=== PATIENT | female | born 1935 | race Asian ===

== ENCOUNTER 2020-06-01 14:18 | Inpatient (IN) | payer OTHER ==
[2020-06-01] VITALS (7 sets, daily range): BP systolic 60–139; BP diastolic 31–87
[~2020-06-01] VITALS: Ht 157.5 cm; Wt 52.0 kg
--- NOTE | 2020-06-01 14:27 | Emergency Room Report ---
History of Present Illness General Chief Complaint: Altered Mental Status Source: Medical Record, EMS Present Illness HPI Patient was sent in from [facility]. Apparently she was unresponsive for 20 minutes before paramedics were called. They found her hypotensive and hypoxic. 150 cc of normal saline were started in the field. The patient is DNR with comfort measures only. Patient has history of dementia hypertension and prior pneumonia,. Patient has a history of dysphagia. Allergies: Coded Allergies: No Known Allergies (Unverified , 06/01/20) COVID-19 Screening Contact w/high risk pt: No Experienced COVID-19 symptoms?: No COVID-19 Testing performed NURSE MIDWIFE/CLINICAL INSTRUCTOR: No Patient History Limited by: medical condition Past Medical History: see triage record, old chart reviewed Social History Narrative TEREZA MaoR Last Menstrual Period: na Reviewed Nursing Documentation: PMH: Agreed; PSxH: Agreed Nursing Documentation-PMH Past Medical History: No History, Except For Hx Hypertension: Yes Review of Systems All Other Systems: limited Physical Exam Vital Signs Date Time Temp Pulse Resp B/P (MAP) Pulse Ox O2 Delivery O2 Flow Rate FiO2 06/01/20 14:14 97.3 80 25 60/31 (41) 90 Non-Rebreather General Appearance: mild distress, other - Eyes closed but responds to pain, Chronically Ill Head: normocephalic Eyes: bilateral eye other - Eyes closed ENT: dry mucus membranes Neck: supple Respiratory: respiratory distress - Mild, rhonchi Cardiovascular #1: regular rate, rhythm, no edema Cardiovascular #2: 2+ radial (L) Gastrointestinal: non tender, decreased bowel sounds Genitourinary: no CVA tenderness Musculoskeletal: back normal Neurologic: aphasia, other - Response to pain, moves all four extremities Psychiatric: depressed affect Skin: Decubitus/Ulcer - Heels, stage I right stage II left, warm/dry Procedures Critical Care Time Critical Care Time Total Critical Care Time: 60 min bedside evaluation and treatment excludes procedures (EKG). Reason for critical care: Severe sepsis, hypotension, elevated troponin, hypoxia, review of CODE STATUS Possible complications: hypotension, hypertension, NV, shock, arrhythmias, metabolic acidosis, end organ damage, respiratory failure. Interventions: Fluid resuscitation, antibiotics, repeat evaluations, review of CODE STATUS, treatment of positive troponin. Course: Patient presented with a history of being unresponsive for 20 minutes. Found to be hypotensive and hypoxemic. Fluid resuscitation begun for sepsis and antibiotics ordered. CODE STATUS reviewed. Call with elevated troponin. A spirin administered. Unable to administer Nitropaste or metoprolol as the patient is hypotensive. Blood pressure improving with fluids. Discussed with admitting physician. Consultations: nursing staff, EMS, admitting physician Performed by: Dr. Miramontes Tolerated well condition = critical Medical Decision Making Diagnostic Impression: Primary Impression: Severe sepsis Additional Impressions: Hypotension Qualified Codes: I95.89 - Other hypotension Hypoxia Elevated troponin Bilateral pneumonia Qualified Codes: J18.9 - Pneumonia, unspecified organism COVID-19 ruled out by laboratory testing Hypernatremia Renal failure Qualified Codes: N19 - Unspecified kidney failure ER Course Patient presents with hypoxia and hypotension. Differential includes Covid, sepsis, pneumonia, pulmonary embolus amongst others. Patient evaluated with EKG, chest x-ray and labs. Patient treated with sepsis resuscitation volume repletion and antibiotics initially. Patient is comfort measures only. Brachial IV started by Dr. Ramires. Patient is extreme extremely dry. EKG sinus rhythm with runs of PACs. No acute changes. Chest x-ray with dense left lower lobe infiltrate and small right lower lobe infiltrate also. Call for elevated lactic acid. Patient's mentation unchanged. Blood pressure still low. Repeat bolus ordered of 1 L and then 300 mils per hour. Prioritize beginning antibiotics. Sepsis reevaluation 1514 White count low. Elevated sodium. Renal failure. Called with elevated troponin. Aspirin ordered. Patient fluid responsive. Blood pressure improved. Patient without respiratory distress with improved oxygen saturation. Still keeps eyes closed. Laboratory Tests Test 06/01/20 14:26 06/01/20 17:10 06/01/20 21:30 06/01/20 23:30 White Blood Count 5.3 K/UL (4.8-10.8) Red Blood Count 5.36 M/UL (4.20-5.40) Hemoglobin 16.6 G/DL (12.0-16.0) H Hematocrit 49.5 % (37.0-47.0) H Mean Corpuscular Volume 92 FL (80-99) Mean Corpuscular Hemoglobin 31.0 PG (27.0-31.0) Mean Corpuscular Hemoglobin Concent 33.6 G/DL (32.0-36.0) Red Cell Distribution Width 11.9 % (11.6-14.8) Platelet Count 273 K/UL (150-450) Mean Platelet Volume 4.9 FL (6.5-10.1) L Neutrophils (%) (Auto) 68.4 % (45.0-75.0) Lymphocytes (%) (Auto) 16.1 % (20.0-45.0) L Monocytes (%) (Auto) 12.8 % (1.0-10.0) H Eosinophils (%) (Auto) 0.0 % (0.0-3.0) Basophils (%) (Auto) 2.6 % (0.0-2.0) H Prothrombin Time 12.1 SEC (9.30-11.50) H Prothrombin Time INR 1.1 (0.9-1.1) Activated Partial Thromboplast Time 22 SEC (23-33) L Sodium Level 161 MMOL/L (136-145) *H Potassium Level 3.2 MMOL/L (3.5-5.1) L Chloride Level 121 MMOL/L (98-107) H Carbon Dioxide Level 25 MMOL/L (21-32) Anion Gap 14 mmol/L (5-15) Blood Urea Nitrogen 82 mg/dL (7-18) H Creatinine 1.9 MG/DL (0.55-1.30) H Estimated Glomerular Filtration Rate 25.2 mL/min (>60) Glucose Level 128 MG/DL (74-106) H Lactic Acid Level 5.10 mmol/L (0.4-2.0) H 6.70 mmol/L (0.4-2.0) H 8.10 mmol/L (0.66-2.22) H Calcium Level 9.9 MG/DL (8.5-10.1) Phosphorus Level 4.2 MG/DL (2.5-4.9) Magnesium Level 2.9 MG/DL (1.8-2.4) H Total Bilirubin 2.6 MG/DL (0.2-1.0) H Direct Bilirubin 0.9 MG/DL (0.0-0.3) H Aspartate Amino Transferase (AST) 43 U/L (15-37) H Alanine Aminotransferase (ALT) 67 U/L (12-78) Alkaline Phosphatase 62 U/L (46-116) Troponin I 0.100 ng/mL (0.000-0.056) Pro-B-Type Natriuretic Peptide 723 pg/mL (0-125) H Total Protein 6.2 G/DL (6.4-8.2) L Albumin 3.2 G/DL (3.4-5.0) L Globulin 3.0 g/dL Albumin/Globulin Ratio 1.1 (1.0-2.7) Lipase 250 U/L (73-393) Arterial Blood pH 7.407 (7.350-7.450) Arterial Blood Partial Pressure CO2 31.7 mmHg (35.0-45.0) L Arterial Blood Partial Pressure O2 67.4 mmHg (75.0-100.0) L Arterial Blood HCO3 19.5 mmol/L (22.0-26.0) L Arterial Blood Oxygen Saturation 91.9 % (95-100) L Arterial Blood Base Excess -4.1 (-2-2) L Beau Test Positive Microbiology Date/Time Source Procedure Growth Status 06/01/20 14:05 Nasopharynx SARS-CoV-2 RdRp Gene Assay - Final Complete EKG Diagnostic Results Rate: normal Rhythm: NSR, other - Runs of PACs ST Segments: no acute changes Rhythm Strip Diag. Results EP Interpretation: yes Rhythm: NSR, no PVC's, other - He sees Chest X-Ray Diagnostic Results Chest X-Ray Diagnostic Results : Chest X-Ray Ordered: Yes # of Views/Limited/Complete: 1 View Indication: Shortness of Breath EP Interpretation: Yes Interpretation: no effusion, no pneumothorax, other - Dense left lower lobe infiltrate and slight right lower lobe infiltrate. Impression: Other Electronically Signed by: Electronically signed by Keenan Miramontes MD BP 107/56, not tachycardic, pulse ox 95% on 100% NRM Status: improved Disposition: ADMITTED INPATIENT Condition: Critical Keenan Miramontes MD Jun 01, 2020 14:27
[2020-06-01] MEDS ORDERED: Vancomycin 1 GM in NS 275 ML IV ONE (14:30)
[2020-06-01] MEDS ORDERED: Cefepime HCl 2 GM in NS 110 ML IV ONE (14:30)
--- NOTE | 2020-06-01 14:30 | NUR ---
ED Nurse Note: pt NEELA ORTIZ RA [address] [facility] for AMS x 20 minutes. per EMS, pt was satting at 60% on RA so they placed her on 15L O2 NRB, satting at 90%, pt is hypotensive with systolic BP being in the 60's. pt presents to ED agonally breathing, non-responsive to name, pain or touch. she has an IV line to L wrist with 500 mL NS running that was placed CATERER'S AIDE to [facility]. pt is noted to be satting in the low 90's and hypotensive. ERMD placed 18' IV using US to pt's R upper arm, IV fluid began emergently. will cont to monitor pt
[2020-06-01 14:45] LABS: BASOPHILS % (AUTO) 2.6 % (0.0-2.0); HEMATOCRIT 49.5 % (37.0-47.0); HEMOGLOBIN 16.6 G/DL (12.0-16.0); LYMPHOCYTES % (AUTO) 16.1 % (20.0-45.0); MEAN CORPUSCULAR VOLUME 92 FL (80-99); MONOCYTES % (AUTO) 12.8 % (1.0-10.0); NEUTROPHILS % (AUTO) 68.4 % (45.0-75.0); PLATELET COUNT 273 K/UL (150-450); RED BLOOD COUNT 5.36 M/UL (4.20-5.40); RED CELL DISTRIBUTION WIDTH 11.9 % (11.6-14.8); WHITE BLOOD COUNT 5.3 K/UL (4.8-10.8)
[2020-06-01 14:55] LABS: INR 1.1 (0.9-1.1)
--- NOTE | 2020-06-01 14:55 | NUR ---
ED Nurse Note: pt seems to wince when RN swabs pt for COVID but non-responsive to verbal stimuli or name. pt is noted to be satting at 99% on 15L O2 via NRB mask. pt's BP is now 73/49 with pulse of [address] Miramontes gave ok to start cefipime IV
[2020-06-01] MEDS ORDERED: BISACODYL5 MG RECTAL (15:11)
[2020-06-01] MEDS ORDERED: ACETAMINOPHEN120 MG PO (15:11)
[2020-06-01] MEDS ORDERED: LOVASTATIN10 MG ORAL (15:11)
[2020-06-01] MEDS ORDERED: FLOMAX0.4 MG ORAL (15:11)
[2020-06-01] MEDS ORDERED: OMEPRAZOLE20 M2 ORAL (15:11)
[2020-06-01] MEDS ORDERED: COZAAR50 MG ORAL (15:11)
[2020-06-01] MEDS ORDERED: MELATONIN3 MG ORAL (15:11)
[2020-06-01] MEDS ORDERED: HYDROCHLOROTH12.5 MG ORAL (15:11)
[2020-06-01] MEDS ORDERED: MILK OF MA400 MG/51 ORAL (15:11)
[2020-06-01] MEDS ORDERED: MULTIVITAMINS1 EAC2 ORAL (15:11)
[2020-06-01] MEDS ORDERED: MEGESTROL ACETAT5 GM MC (15:11)
[2020-06-01] MEDS ORDERED: NORVASC5 MG ORAL (15:11)
[2020-06-01] MEDS ORDERED: CRANBERRY450 M5 PO (15:11)
[2020-06-01] MEDS ORDERED: URECHOLINE25 MG ORAL (15:11)
[2020-06-01 15:16] LABS: ALBUMIN 3.2 G/DL (3.4-5.0); ALBUMIN/GLOBULIN RATIO 1.1 (1.0-2.7); BILIRUBIN,TOTAL 2.6 MG/DL (0.2-1.0); CALCIUM 9.9 MG/DL (8.5-10.1); CREATININE 1.9 MG/DL (0.55-1.30); PHOSPHORUS 4.2 MG/DL (2.5-4.9); POTASSIUM 3.2 MMOL/L (3.5-5.1)
[2020-06-01 15:39] LABS: BILIRUBIN,DIRECT 0.9 MG/DL (0.0-0.3)
--- NOTE | 2020-06-01 15:42 | NUR ---
ED Nurse Note: pt's rectal temp was 98.7, she has redness to her sacral region. R upper arm IV site was infiltrated and removed. pt still has 2 patent IV sites on L arm in the AC and wrist. pt had one large BM that consisted mainly of foul smelling green/yellow diarrhea.
--- NOTE | 2020-06-01 16:35 | Diagnostic Imaging Report ---
Indication: Shortness of breath Technique: One view of the chest Comparison: none Findings: Fairly dense consolidation is seen at the left lung base. There is also some infiltrate at the right infrahilar region. Chronic appearing interstitial prominence and bronchial wall thickening is seen elsewhere. The heart size is normal. There is some blunting of left costophrenic sulcus, small amount of pleural fluid likely. The aorta is tortuous and calcified. Impression: Bilateral left greater than right infiltrates, likely pneumonia Other findings as noted
[2020-06-01] MEDS ORDERED: Acetaminophen 650mg/20.3ml NG PRN (17:00)
--- NOTE | 2020-06-01 17:33 | NUR ---
ED Nurse Note: report given to MANDEEP Mcmullen.
--- NOTE | 2020-06-01 18:05 | NUR ---
NURSE NOTES:Patient received from MANDEEP Arrieta from the ER. Patient arrived via gurney. Placed patient on ekg monitor. Vitals are stable, 02 saturation is at 91 on 15 liters non-rebreather, Dr willis ordered BIPAP for patient. Cardiac rhythm is sinus rhythm. notified RT that patient arrived to the floor. Patient is non-verbal and responding to painful stimuli only. Patients Right arm is swollen, ER stated that an IV was running but the IV was infiltrated, which is the cause for the swelling as it was not there before, IV was removed and restarted in the left arm. Bed is in the low and locked position, with call light at bedside. Patient is DNR/DNI. ordered NG tube placement but patient is on BIPAP. will continue plan of care and monitor patient closely.
--- NOTE | 2020-06-01 18:15 | History and Physical Report ---
DATE OF ADMISSION: 06/01/2020 REASON FOR ADMISSION: Sepsis with shock. HISTORY OF PRESENT ILLNESS: This [place] female who [facility] a [facility] was found unresponsive for approximately 20 minutes at which time paramedics arrived. She was noted to be hypoxic and hypotensive. She was started on IV fluids and bagged. She was brought into the emergency room where her initial blood pressure was 60/31, heart rate 80, and respiratory rate 25. She was afebrile and immediately placed on a non-rebreather mask with saturations of approximately 89 to 90%. The patient had a diagnostic workup including an elevated lactic acid level. She was given fluid challenges and villarreal cultured with empiric antimicrobials initiated. PAST MEDICAL HISTORY: Includes osteoarthritis, dementia, hypertension, dysphagia. ALLERGIES: None. MEDICATIONS: Reviewed and reconciled. FAMILY HISTORY: Not known. SOCIAL HISTORY: Negative for smoking or alcohol use. REVIEW OF SYSTEMS: Not obtainable. Twenty minutes time spent reviewing skilled nursing chart and discussing status with skilled nursing staff. PHYSICAL EXAMINATION: VITAL SIGNS: As noted above. HEENT: Temporal wasting. Dry mucous membranes. LUNGS: Bilateral rhonchi. CARDIAC: Regular rhythm and rate. Normal S1, S2. No murmur appreciated, but respiratory sounds obscure exam. ABDOMEN: Soft, nontender. EXTREMITIES: No edema with some decreased capillary refill. Moves all extremities. LABORATORY AND DIAGNOSTIC DATA: Chest x-ray reveals bilateral lower lobe infiltrates left greater than right. EKG with sinus rhythm, atrial arrhythmia, and nonspecific ST change. Sodium 161, potassium 3.2, chloride 121, bicarb 25, BUN 82, creatinine 1.9, glucose 128. Lactic acid 5.1. Troponin 0.1. Albumin is 3.2. Pro natriuretic peptide 723. White count 5.3 with hemoglobin 16.6. Urinalysis is pending. IMPRESSION: 1. Sepsis with shock. 2. Healthcare-associated pneumonia. 3. Severe dehydration. 4. Hypovolemia. 5. Hypernatremia. 6. Hyperchloremia. 7. Hypokalemia. 8. Cerebrovascular disease with dementia. 9. Dysphagia. 10. Lactic acidosis. 11. Condition critical. 12. Prognosis guarded. 13. Acute respiratory insufficiency. Advance directives were reviewed. Patient has signed advance directives for DNR/DNI. This will be implemented. PLAN: 1. Cardiac monitoring. 2. Volume resuscitation followed by hypotonic hydration. 3. NG tube for nutrition and fluids. 4. Broad-spectrum antimicrobials pending final cultures. 5. Respiratory hygiene. 6. DVT and stress ulcer prophylaxis. 7. Serial lactic acid and troponin levels. 8. BiPAP support. 9. No pressors at this time. Glynn Wright M.D. DR: ZACKERY JOB#: [id number] CC:
[2020-06-01] MEDS: D5 1/2NS w/KCl 20mEq 1,000 ML IV SCH (19:00)
--- NOTE | 2020-06-01 19:45 | NUR ---
NURSE NOTES: Received patient from MANDEEP Mcmullen under the care of Dr. Wright for the admitting dx. of altered mental status. Placed patient on school lunch monitor and is bouncing between ST and SR. Vitals are stable. Patient is non-verbal and responding to painful stimuli only. Patients R arm is swollen, previous nurse stated that an IV was infiltrated from ER, which is the cause for the swelling. Bed is in the low and locked position, with call light at bedside. Patient is DNR/DNI. MD ordered NG tube placement but patient is on BIPAP. Will continue current plan of care.
[2020-06-01] MEDS: Albuterol/Ipratropium 3ml neb HHN SCH (19:48)
--- NOTE | 2020-06-01 19:48 | NUR ---
NURSE HAND-OFF REPORT: Important Events on Shift:BP dropped to 60s/40s patient is also tachycardic Patient Status: Unstable Diet: Diet ordered placed for Osmolyte but patient is on BIPAP. Pending Orders: NG tube placement Pending Results/Labs: Pending MD notification: Latest Vital Signs: Temperature 97.3 , Pulse 80 , B/P 62 /41 , Respiratory Rate 19 , O2 SAT 95 , Non-Rebreather, O2 Flow Rate 15.0 . Vital Sign Comment: BP dropping, IV fluids running at 125ML/Hour EKG Rhythm: Sinus rhythm Rhythm change?: N Notified?: N Response: Latest Rm Fall Score: 50 Fall Risk: High Risk Safety Measures: Call light , Bed Alarm , Side Rails , Bed position . Fall Precautions: Report given to .Devon KAUFMAN. Endorsed plan of care and to follow up with Dr Wright regarding NG placement for patient.
--- NOTE | 2020-06-01 20:00 | NUR ---
NURSE NOTES: Noted patient hypotensive status. MD called and left msg. Awaiting call back.
[2020-06-01] MEDS: Heparin 5000 units/ml inj SUBQ SCH (20:54)
--- NOTE | 2020-06-01 21:00 | NUR ---
NURSE NOTES: Patient asleep. Tolerating BiPAP settings well with O2 sat noted >93%. Noted with SR on the theatre manager, which changes occasionally to ST and back down to ST. Patient is otherwise asymptomatic. Blood pressure noted with SBP's on the 80s and DBP on the 50s. patient continues to be on IV fluids. Will continue to monitor.
--- NOTE | 2020-06-01 23:30 | NUR ---
NURSE NOTES: MD called regarding increased lactic acid and intermittent tachycardia of patient. No answer, left msg. Will continue with current plan of care.
[2020-06-02] VITALS (11 sets, daily range): BP systolic 57–144; BP diastolic 39–89
--- NOTE | 2020-06-02 | NUR ---
NURSE NOTES: Noted with elevated HR but otherwise benign. Bolus NS @300cc/hr given and noted to have stabilized BP to WNL. Noted FLACC score of 0/10, with no distress or discomfort noted. Will continue to monitor.
[2020-06-02] MEDS: Albuterol/Ipratropium 3ml neb HHN SCH ×5 (00:59→19:20)
[2020-06-02] MEDS: D5 1/2NS w/KCl 20mEq 1,000 ML IV SCH ×2 (02:45→10:25)
--- NOTE | 2020-06-02 03:00 | NUR ---
NURSE NOTES: Noted fluctuation between SR and ST via satellite project site monitor, but otherwise benign. Patient is asleep, with 0/10 FLACC score. No sign of discomfort or distress noted. Will continue to monitor.
--- NOTE | 2020-06-02 05:00 | NUR ---
NURSE NOTES: Patient still asleep. Tolerating BiPAP settings well with no signs of distress or discomfort at this time. FLACC score noted 0/10. Safety check performed in room. All precautions observed and maintained at all times. Will continue to monitor.
--- NOTE | 2020-06-02 07:10 | NUR ---
NURSE HAND-OFF REPORT: Important Events on Shift: Admitted to unit. Patient Status: Stable Diet: Order for NGT Pending Orders: Pending Results/Labs: Pending MD notification: Latest Vital Signs: Temperature 96.3 , Pulse 89 , B/P 144 /89 , Respiratory Rate 34 , O2 SAT 99 , Bi-pap, O2 Flow Rate 15.0 . Vital Sign Comment: EKG Rhythm: Sinus Rhythm Rhythm change?: N MD Notified?: N - MD Response: Latest Rm Fall Score: 55 Fall Risk: High Risk Safety Measures: Call light Within Reach, Bed Alarm Zone 1, Side Rails Side Rails x3, Bed position Low and Locked. Fall Precautions: Yellow Socks Yellow Gown Door Sign Report given to MANDEEP Patel.
--- NOTE | 2020-06-02 07:28 | NUR ---
NURSE NOTES: Received report from MANDEEP Bermudez. Patient is resting in bed, in stable condition. No s/sx of SOB, breathing is even and unlabored, on Bipap 12/4 FiO2 100%, SpO2 95%. Per night nurse, unable to insert ordered NGT due to patient desaturating to 70% SpO2 and unable to be weaned from BiPap. Per POLST patient is DNR/DNI, ordered code status is DNR/DNI. Patient sleeping, observed no presence of pain or discomfort at this time. Bed is in lowest position, brakes engaged, bed alarm is on. Bed is in lowest position, brakes engaged. Call light is kept within easy reach. Will continue to monitor patient.
--- NOTE | 2020-06-02 07:45 | NUR ---
NURSE NOTES: Per MANDEEP Bermudez report, patient goes in and out of atrial fibrillation and MD is aware. Patient currently noted sinus rhythm 83 bpm on registered nurse cardiac. Noted. Will continue to monitor patient.
--- NOTE | 2020-06-02 08:00 | NUR ---
NURSE NOTES: Morning vital signs noted with BP 57/37, HR 143 bpm, patient is on D5 0.45% NS with 20 mEq KCl at 125 ml/hr. Patient noted DNR/DNI with POLST. Charge nurse made aware. Called Dr. Wright at , delivered to voicemail, left voicemail regarding situation at this time. Awaiting call back. Will continue to monitor patient.
[2020-06-02 08:10] LABS: HEMATOCRIT 39.3 % (37.0-47.0); HEMOGLOBIN 13.5 G/DL (12.0-16.0); MEAN CORPUSCULAR VOLUME 92 FL (80-99); PLATELET COUNT 135 K/UL (150-450); RED BLOOD COUNT 4.27 M/UL (4.20-5.40); RED CELL DISTRIBUTION WIDTH 12.1 % (11.6-14.8); WHITE BLOOD COUNT 8.1 K/UL (4.8-10.8)
[2020-06-02 08:22] LABS: CREATININE 1.5 MG/DL (0.55-1.30); POTASSIUM 3.1 MMOL/L (3.5-5.1)
--- NOTE | 2020-06-02 08:29 | NUR ---
RD ASSESSMENT & RECOMMENDATIONS SEE CARE ACTIVITY FOR COMPLETE ASSESSMENT DAILY ESTIMATED NEEDS: Needs based on Pulmonary, underweight/ 48kg 30-35 kcals/kg 6544-9336 total kcals 1-1.5 g protein/kg 48-75 g total protein 25-30 mL/kg 1687-3611 total fluid mLs NUTRITION DIAGNOSIS: Swallowing difficulty R/T dysphagia, respiratory status as evidenced by w/ an order for NGT insertion + TF, on BIPAP at this time. CURRENT TF:Osmolite 1.2 @ 20ml/hr x 24 hrs ordered, pt on BIPAP PO DIET RECOMMENDATIONS: CHANNELER INSOLE eval prior to oral diet for safety of PO intake ENTERAL NUTRITION RECOMMENDATIONS: Osmolite 1.2 @ 50ml/hr x 24 hrs to provide 1200ml, 1440kcal, 67g prot, 984ml free water * Once off BIPAP and hemodynamically stable - increase goal rate to 50ml/hr x 24 hrs to meet 100% est kcal/prot needs. - HOB over 30 degrees - water flush without IVF : 100ml q 8hrs ADDITIONAL RECOMMENDATIONS: * Per SNF: HT= 63", 106lbs (05/17/20) * Monitor hemodynamic stability and BIPAP usage, ability to feed -> hypotensive, on BIPAP * Monitor lytes, replete as needed * F/up w/ WC eval for BL heels
[2020-06-02 08:34] LABS: ALBUMIN/GLOBULIN RATIO 0.7 (1.0-2.7); BILIRUBIN,TOTAL 1.4 MG/DL (0.2-1.0)
[2020-06-02 08:36] LABS: BILIRUBIN,DIRECT 0.5 MG/DL (0.0-0.3)
[2020-06-02] MEDS: Cefepime HCl 1 GM in D5W 55 ML IVPB SCH (08:48)
[2020-06-02] MEDS: Heparin 5000 units/ml inj SUBQ SCH ×2 (08:54→21:29)
[2020-06-02] MEDS: Aspirin Baby 81mg NG SCH (08:56)
--- NOTE | 2020-06-02 09:00 | NUR ---
NURSE NOTES: Second call to Dr. Wright to [facility] telephone umber provided, sent to [employer]. Left message, patient's blood pressure noted at 62/54 with HR 132 bpm. On bipap 12/ FiO2 90%, SpO2 99%. Patient is DNR/DNI per POLST and code status. Will continue to monitor patient.
[2020-06-02] MEDS ORDERED: Vancomycin 1gm/D5W 275ml IVPB ONE ×2 (10:00)
--- NOTE | 2020-06-02 10:00 | NUR ---
NURSE NOTES: Nurse yeast supervisor at nurse station, made aware that Dr. Wright has been paged twice regarding patient's low blood pressure, Patient DNR/DNI. Nurse yeast supervisor acknowledged. Will continue to monitor patient.
--- NOTE | 2020-06-02 10:30 | NUR ---
NURSE NOTES: Dr. Wright called back nurse station and made aware of low blood pressure of 57/37 with HR 150 bpm this morning, current BP 81/52 Hr 119 bpm. Also made aware of new lactic acid level of 5.10 and troponin level of 0.221. Dr. Wright acknowledged and informed this nurse they will increase D5 0.45% NS with 20 mEq KCl IV fluid ordered to rate of 150 ml/hr. Noted. Will continue to monitor patient.
--- NOTE | 2020-06-02 11:10 | NUR ---
NURSE NOTES: Dr. Guerra seen and examined patient at bedside. Noted with new IV fluids order for D5W at 100 ml/hr per Dr. Guerra, informed Dr. Guerra that this nurse was just informed by Dr. Wright 15 minutes ago that they will increase IV fluid rate to 150 ml/hr due to patient hypotension, BP 57/37 HR 150 bpm, Dr. Guerra acknowledged and gave no new orders regarding IV fluid rate. Noted. Dr. Guerra ordered urinary sanchez catheter insertion due to sepsis, Albumin 5% 500 ml IV x 1. Order entered and noted. Also informed Dr. Guerra that patient noted with low urine output and 100 ml of dark rhonda urine. Dr. Guerra acknowledged. Will continue to monitor patient.
--- NOTE | 2020-06-02 11:21 | Consultation ---
Consult Note Consult Note I am asked to evaluate the patient at the request of Dr. Wright for renal failure and abnormal electrolyte and fluid management Patient seen in [facility]. Discussed with MANDEEP Patel. Patient is on BiPAP. Tachypneic and toxic appearance. Patients CODE STATUS is DNR/DNI. Emergency room note: Patient was sent in from [facility]. Apparently she was unresponsive for 20 minutes before paramedics were called. They found her hypotensive and hypoxic. 150 cc of normal saline were started in the field. The patient is DNR with comfort measures only. Patient has history of dementia hypertension and prior pneumonia,. Patient has a history of dysphagia. Allergies: No Known Allergies (Unverified , 06/01/20) COVID-19 Screening Contact w/high risk pt: No Experienced COVID-19 symptoms?: No COVID-19 Testing performed CASE AIDE: No Limited by: medical condition Past Medical History: see triage record, old chart reviewed Social [facility] [place] Reviewed Nursing Documentation: PMH: Agreed; PSxH: Agreed Past Medical History: No History, Except For Hx Hypertension: Yes PHYSICAL EXAMINATION: VITAL SIGNS: As noted above. HEENT: Temporal wasting. Dry mucous membranes. LUNGS: Bilateral rhonchi. CARDIAC: Regular rhythm and rate. Normal S1, S2. No murmur appreciated, but respiratory sounds obscure exam. ABDOMEN: Soft, nontender. EXTREMITIES: decreased capillary refill. Moves all extremities. LABORATORY AND DIAGNOSTIC DATA: Chest x-ray reveals bilateral lower lobe infiltrates left greater than right. EKG with sinus rhythm, atrial arrhythmia, and nonspecific ST change. Sodium 161, potassium 3.2, chloride 121, bicarb 25, BUN 82, creatinine 1.9, glucose 128. Lactic acid 5.1. Troponin 0.1. Albumin is 3.2. Pro natriuretic peptide 723. White count 5.3 with hemoglobin 16.6. Urinalysis is pending. Assessment/Plan Renal failure Severe dehydration Sepsis with shock Pneumonia Electrolyte imbalances History of CVA with dementia Respiratory failure Patient is on BiPAP To have Jaime catheter D5W IV fluid Albumin 5% 500 cc IV bolus Monitor renal parameters electrolytes Antibiotics pulmonary support Patient DNR/DNI Asher Guerra MD Jun 02, 2020 11:21
--- NOTE | 2020-06-02 16:00 | NUR ---
NURSE NOTES: Patient with new ABG results as follows: pH 7.390, pCO2 23.5, pO2 88.7, HCO3 14.0, O2 saturation 96.5 with Bipap setting of 12/4 FiO2 70%. Called and left message with Dr. Wright regarding assessments. Will continue to monitor patient.
--- NOTE | 2020-06-02 16:20 | NUR ---
NURSE NOTES: TANISHA Campos of Dr. Roth seen and examined patient at bedside. This nurse informed WELDING MACHINE OPERATOR SUBMERGED ARC of ABG results of: pH 7.390, pCO2 23.5, pO2 88.7, HCO3 14.0, O2 saturation 96.5 with Bipap setting of 12/4 FiO2 70%. Patient is DNR/DNI per POLST. TANISHA Campos acknowledged and informed this nurse that they will consult Dr. Roth before making any new orders at this time. Noted. Will continue to monitor patient.
--- NOTE | 2020-06-02 17:00 | NUR ---
NURSE NOTES: Called and left message for Dr. Wright regarding clarification for nasogastric tube insertion order. Per patient's POLST no artificial means of nutrition or tube feeding. Awaiting call back from Dr. Wright. Will continue to monitor patient.
[2020-06-02] MEDS ORDERED: BISACODYL10 M1 RC (18:28)
[2020-06-02] MEDS ORDERED: INFUVITE ADULT10 ML IV (18:28)
[2020-06-02] MEDS ORDERED: MULTIVITAMINS1 EAC8 ORAL (18:28)
[2020-06-02] MEDS ORDERED: MEGESTROL400 MG/11 PO (18:28)
--- NOTE | 2020-06-02 19:16 | NUR ---
NURSE HAND-OFF REPORT: Important Events on Shift: Patient Status: Stable Diet: Awaiting clarificaton of NGT inseriton from Dr. Wright. MANDEEP Bermudez made aware. Pending Orders: Awaiting clarificaton of NGT inseriton from Dr. Wright. MANDEEP Bermudez made aware. Pending Results/Labs:None Pending MD notification:None Latest Vital Signs: Temperature 98.2 , Pulse 122 , B/P 94 /62 , Respiratory Rate 29 , O2 SAT 100 , Bi-pap, O2 Flow Rate 15.0 . Vital Sign Comment: Stable. EKG Rhythm: Atrial Fibrillation Rhythm change?: Y Notified?: N - MD Response: Latest Rm Fall Score: 55 Fall Risk: High Risk Safety Measures: Call light Within Reach, Bed Alarm Zone 1, Side Rails Side Rails x3, Bed position Low and Locked. Fall Precautions: Yellow Socks Yellow Gown Door Sign Report given to MANDEEP Bermudez.
--- NOTE | 2020-06-02 19:20 | NUR ---
NURSE NOTES: Received patient from MANDEEP Patel under the care of Dr. Wright for the admitting dx. of altered mental status. Placed patient on cardiac cath technician and is bouncing between ST and SR with episodes of A. fib. Vitals are stable. Patient is non-verbal and responding to painful stimuli only. Patients R arm is still swollen, IV was infiltrated from ER, which is the cause for the swelling. Bed is in the low and locked position, with call light at bedside. Patient is DNR/DNI. Will continue current plan of care.
--- NOTE | 2020-06-02 20:00 | NUR ---
NURSE NOTES: Seen and examined by JORGE Burnette at this time. Continue with current plan of care.
--- NOTE | 2020-06-02 20:00 | Cardiology Report ---
APPROVED REPORT EKG Measurement Heart [id number] HI [id number] <Conclusion> Sinus rhythm with paroxysmal atrial fibrillation Marked ST abnormality, possible anterior subendocardial injury Abnormal ECG
--- NOTE | 2020-06-02 20:36 | NUR ---
NURSE NOTES: Received new order from Dr. Roth regarding Covid PCR test for the patient. Noted and carried out.
--- NOTE | 2020-06-02 22:00 | NUR ---
NURSE NOTES: FLACC score of 0/10. No sign of distress or discomfort at this time. Tolerating BiPAP settings well, with saturations >96%. IV sites patent and infusing well, no redness or swelling noted on site. Safety check performed, observed and maintained at all times.
--- NOTE | 2020-06-02 23:02 | Cardiology Progress Note ---
Subjective DATE OF SERVICE: Jun 02, 2020 Remains tachypneic and hypoxic, on bipap. Hypotonic IVF being admin for severe free water deficit. Monitor: Paroxysmal atrial fibrillation with RVR Labs reviewed Advanced directives and Polst reaffirmed with responsible parties - DNR/DNI and no termite treater helper artificial nutrition Objective Last 24 Hour Vital Signs Date Time Temp Pulse Resp B/P (MAP) Pulse Ox O2 Delivery O2 Flow Rate FiO2 06/02/20 21:00 Bi-pap 06/02/20 20:00 70 06/02/20 20:00 97.3 124 34 110/66 (81) 100 06/02/20 20:00 119 06/02/20 20:00 Bi-pap 06/02/20 19:32 110 30 100 Bi-Pap 70 112 31 100 70 06/02/20 18:00 122 94/62 (73) 06/02/20 16:00 Bi-pap 06/02/20 16:00 70 06/02/20 16:00 98.2 109 29 85/54 (64) 100 06/02/20 16:00 118 06/02/20 15:03 99 32 99 70 06/02/20 14:36 144 87/56 (66) 06/02/20 12:09 94 34 100 80 06/02/20 12:00 Bi-pap 06/02/20 12:00 93 06/02/20 12:00 90 06/02/20 12:00 80 06/02/20 11:57 99.0 120 29 71/42 (52) 100 06/02/20 10:12 119 81/55 (64) 06/02/20 09:00 98.5 133 29 57/39 (45) 100 06/02/20 09:00 Bi-pap 06/02/20 08:25 98.2 150 30 62/42 (49) 100 06/02/20 08:00 90 06/02/20 08:00 98.1 95 30 61/39 (46) 97 06/02/20 08:00 Bi-pap 06/02/20 08:00 93 06/02/20 08:00 90 06/02/20 07:10 96 36 99 90 06/02/20 04:00 100 06/02/20 04:00 88 06/02/20 04:00 96.3 89 34 144/89 (107) 99 06/02/20 00:59 76 29 100 Bi-Pap 100 06/02/20 00:00 100 06/02/20 00:00 97.0 68 26 80/50 (60) 99 06/02/20 00:00 70 06/01/20 23:47 78 28 91 100 ROS: unchanged from my eval of 06/01/20 HEENT: normal ENT inspection RHYTHM: Afib LUNGS: bilateral rhonchi, trach site clean ABDOMEN: normal bowel sounds, non tender, soft, distended EXTREMITIES: trace edema Laboratory Tests Test 06/01/20 23:30 06/02/20 07:45 06/02/20 10:50 06/02/20 15:25 Lactic Acid Level 8.10 mmol/L (0.66-2.22) H 5.40 mmol/L (0.4-2.0) H 5.40 mmol/L (0.66-2.22) H White Blood Count 8.1 K/UL (4.8-10.8) # Red Blood Count 4.27 M/UL (4.20-5.40) Hemoglobin 13.5 G/DL (12.0-16.0) Hematocrit 39.3 % (37.0-47.0) Mean Corpuscular Volume 92 FL (80-99) Mean Corpuscular Hemoglobin 31.6 PG (27.0-31.0) H Mean Corpuscular Hemoglobin Concent 34.3 G/DL (32.0-36.0) Red Cell Distribution Width 12.1 % (11.6-14.8) Platelet Count 135 K/UL (150-450) #L Mean Platelet Volume 6.0 FL (6.5-10.1) L Neutrophils (%) (Auto) % (45.0-75.0) Lymphocytes (%) (Auto) % (20.0-45.0) Monocytes (%) (Auto) % (1.0-10.0) Eosinophils (%) (Auto) % (0.0-3.0) Basophils (%) (Auto) % (0.0-2.0) Differential Total Cells Counted 100 Neutrophils % (Manual) 63 % (45-75) Lymphocytes % (Manual) 7 % (20-45) L Monocytes % (Manual) 7 % (1-10) Eosinophils % (Manual) 0 % (0-3) Basophils % (Manual) 0 % (0-2) Band Neutrophils 23 % (0-8) H Platelet Estimate Decreased L Platelet Morphology Normal Red Blood Cell Morphology Normal Sodium Level 159 MMOL/L (136-145) H Potassium Level 3.1 MMOL/L (3.5-5.1) L Chloride Level 126 MMOL/L (98-107) H Carbon Dioxide Level 19 MMOL/L (21-32) L Anion Gap 14 mmol/L (5-15) Blood Urea Nitrogen 83 mg/dL (7-18) H Creatinine 1.5 MG/DL (0.55-1.30) H Estimat Glomerular Filtration Rate 33.1 mL/min (>60) Glucose Level 122 MG/DL (74-106) H Calcium Level 8.0 MG/DL (8.5-10.1) L Magnesium Level 2.0 MG/DL (1.8-2.4) Total Bilirubin 1.4 MG/DL (0.2-1.0) H Direct Bilirubin 0.5 MG/DL (0.0-0.3) H Aspartate Amino Transf (AST/SGOT) 40 U/L (15-37) H Alanine Aminotransferase (ALT/SGPT) 45 U/L (12-78) Alkaline Phosphatase 38 U/L (46-116) L Troponin I 0.221 ng/mL (0.000-0.056) Total Protein 4.9 G/DL (6.4-8.2) L Albumin 2.0 G/DL (3.4-5.0) L Globulin 2.9 g/dL Albumin/Globulin Ratio 0.7 (1.0-2.7) L Thyroid Stimulating Hormone (TSH) 0.688 uiU/mL (0.358-3.740) Random Vancomycin Level 8.2 ug/mL Arterial Blood pH 7.390 (7.350-7.450) Arterial Blood Partial Pressure CO2 23.5 mmHg (35.0-45.0) *L Arterial Blood Partial Pressure O2 88.7 mmHg (75.0-100.0) Arterial Blood HCO3 14.0 mmol/L (22.0-26.0) *L Arterial Blood Oxygen Saturation 96.5 % (95-100) Arterial Blood Base Excess -9.1 (-2-2) *L Beau Test Positive Microbiology Date/Time Source Procedure Growth Status 06/01/20 17:23 Rectum Received 06/01/20 14:05 Nasopharynx SARS-CoV-2 RdRp Gene Assay - Final Complete Assessment/Plan Assessment/Plan Sepsis Shock Respiratory failure HC associated pneumonia Severe dehydration/hypernatremia/hyperchloremia Lactic acidosis Paroxysmal atrial fibrillation Acute myocardial ischemia Chronic diastolic CHF Acute renal failure erebrovascular disease with dementia Admit to SDU DNR/DNI IV antimicrobials Respiratory therapy Bipap Hypotonic IVF Serial lactic acid and troponin levels Keenan Wright MD Jun 02, 2020 23:02
--- NOTE | 2020-06-02 23:23 | NUR ---
NURSE NOTES: Orders for NGT placement, KUB xray, rectal tube placement, and c. diff stool test noted and carried out.
--- NOTE | 2020-06-02 23:30 | Consultation ---
DATE OF CONSULTATION: 06/02/2020 PULMONARY CONSULTATION HISTORY OF PRESENT ILLNESS: This is an 84-year-old DNR patient who is admitted to the hospital after a period of unresponsiveness. She is a half-way resident. The patient was hypoxic and hypotensive. Blood pressure was 60/30 and she was tachypneic. She was placed on a nonrebreather mask with improvement. The patient was noted to have lactic acid elevation. She was given broad-spectrum antibiotics, and at this time she is on a BiPAP machine. She is poorly responsive. PAST HISTORY: Osteoarthritis, dementia, hypertension, dysphagia. HOME MEDICATIONS: Reviewed and reconciled in chart. SOCIAL HISTORY: No history of alcohol or tobacco usage. PHYSICAL EXAMINATION: GENERAL: An 84-year old female. She appears cachectic. HEENT: Unremarkable. LUNGS: Clear breath sounds bilaterally. ABDOMEN: Soft. VITAL SIGNS: There is a BiPAP in place with setting of 13/4 and 70% FiO2. Blood pressure is 110/60, heart rate is 120, O2 sat 100% on 70% FiO2. LABORATORY DATA: Lab testing shows normal CBC. Chemistry is notable for lactic acid of 8.1, now 5.4. Sodium 155, potassium 3.1, creatinine 1.5. Troponin 0.22. ABG, pH 7.7, pCO2 23, pO2 88; this is on BiPAP. Toxicology is negative. Coags are negative. X-ray chest shows bilateral infiltrates. COVID-19 rapid PCR is negative. IMPRESSION: 1. Bilateral pneumonia. 2. Respiratory failure. 3. BiPAP use. 4. Altered mental status. 5. Dementia. 6. Limited code. DISCUSSION: Continue BiPAP. We will attempt to decrease as the patient improves. Broad-spectrum antibiotics. NG tube for nutrition and fluid . We will follow. Suggest repeat COVID-19 testing. Mars Roth M.D. DR: JEANCARLOS JOB#: [id number] CC:
--- NOTE | 2020-06-02 23:41 | Diagnostic Imaging Report ---
EXAM: XR Abdomen, 2 Views CLINICAL HISTORY: NGT TECHNIQUE: Frontal view of the abdomen/pelvis with upright view of the abdomen. COMPARISON: No relevant prior studies available. FINDINGS: Lower thorax: There is opacity of the left middle lower lung consistent with pneumonia. There is left pleural effusion. Intraperitoneal space: No free air. Gastrointestinal tract: Unremarkable. No dilation. Organs: Clips in the right upper quadrant from prior cholecystectomy. Bones/joints: Lumbar spine hardware is present. Status post vertebroplasty changes. The bones are osteopenic. Tubes, lines and devices: Nasogastric tube tip lies below the diaphragm however may be near the gastroesophageal junction. Suggest readjusting the nasogastric tube position by pulling the tube back and reinserting. IMPRESSION: 1. Nasogastric tube tip may be within the region of the gastroesophageal junction therefore repositioning is recommended. 2. Left lung pneumonia and left pleural effusion. <MYCVCSECTION> Communications: 06/02/20 23:48 Call Nurse Transfered MANDEEP Sterling to radiologist
--- NOTE | 2020-06-02 23:52 | NUR ---
NURSE NOTES: Radiologist from [facility] called to recommend nurse to advance NGT by about 5-8cm.
[2020-06-03] VITALS: BP 110/58
[2020-06-03] MEDS: Albuterol/Ipratropium 3ml neb HHN SCH ×4 (01:00→19:44)
--- NOTE | 2020-06-03 01:00 | NUR ---
NURSE NOTES: Rectal tube in position well. Noted with discharge. FLACC score of 0/10. No sign of distress or discomfort at this time. Tolerating BiPAP settings well, with saturations >96%. IV sites patent and infusing well, no redness or swelling noted on site. Safety check performed, observed and maintained at all times.
--- NOTE | 2020-06-03 02:59 | Diagnostic Imaging Report ---
EXAM: XR Abdomen, 2 Views CLINICAL HISTORY: NGT TECHNIQUE: Frontal view of the abdomen/pelvis with upright view of the abdomen. COMPARISON: Abdominal radiograph dated 06/02/20. FINDINGS: Lower thorax: There is consolidation of the left middle lower lung consistent with pneumonia. There is a left pleural effusion which is unchanged. Intraperitoneal space: No free air. Gastrointestinal tract: Unremarkable. No dilation. Organs: Cholecystectomy clips in the right upper quadrant. Bones/joints: Lumbar spine hardware reidentified with vertebroplasty changes. Vasculature: Calcification of the aortic arch. Tubes, lines and devices: The nasogastric tube tip is now within the distal stomach. IMPRESSION: Nasogastric tube tip is now within the distal stomach.
[2020-06-03 04:00] VITALS: BP 113/65
[2020-06-03 05:22] LABS: MEAN CORPUSCULAR VOLUME 90 FL (80-99); PLATELET COUNT 113 K/UL (150-450); RED BLOOD COUNT 3.79 M/UL (4.20-5.40); RED CELL DISTRIBUTION WIDTH 11.9 % (11.6-14.8); WHITE BLOOD COUNT 16.3 K/UL (4.8-10.8)
[2020-06-03 06:05] LABS: ALANINE AMINOTRANSFERASE 40 U/L (12-78); ALBUMIN 2.6 G/DL (3.4-5.0); ALKALINE PHOSPHATASE 51 U/L (46-116); ANION GAP 17 mmol/L (5-15); ASPARTATE AMINO TRANSFERASE 64 U/L (15-37); BILIRUBIN,TOTAL 1.5 MG/DL (0.2-1.0); BLOOD UREA NITROGEN 59 mg/dL (7-18); CALCIUM 8.8 MG/DL (8.5-10.1); CARBON DIOXIDE 14 MMOL/L (21-32); CHLORIDE 120 MMOL/L (98-107); CHOLESTEROL 66 MG/DL (< 200); FERRITIN 623 NG/ML (8-388); HDL CHOLESTEROL 27 MG/DL (40-60); SODIUM 150 MMOL/L (136-145); TRIGLYCERIDES 55 MG/DL (30-150)
[2020-06-03 07:03] LABS: POTASSIUM 2.7 MMOL/L (3.5-5.1)
[2020-06-03 07:10] LABS: BILIRUBIN,DIRECT 0.5 MG/DL (0.0-0.3)
--- NOTE | 2020-06-03 07:20 | NUR ---
NURSE HAND-OFF REPORT: Important Events on Shift: NGT placement, Rectal tube placement Patient Status: Stable Diet: - Pending Orders: Pending Results/Labs:C. diff. Pending MD notification: Abnormal lab values Latest Vital Signs: Temperature 97.7 , Pulse 128 , B/P 113 /65 , Respiratory Rate 34 , O2 SAT 97 , Bi-pap, O2 Flow Rate 15.0 . Vital Sign Comment: EKG Rhythm: Atrial Fibrillation with RVR Rhythm change?: N MD Notified?: N - MD Response: Latest Rm Fall Score: 55 Fall Risk: High Risk Safety Measures: Call light Within Reach, Bed Alarm Zone 1, Side Rails Side Rails x3, Bed position Low and Locked. Fall Precautions: Yellow Socks Yellow Gown Door Sign Report given to MANDEEP Giang.
[2020-06-03 07:25] LABS: % IRON SATURATION 9 % (15-50); IRON 8 ug/dL (50-175); TOTAL IRON BINDING CAPACITY 88 ug/dL (250-450)
[2020-06-03 07:35] LABS: GAMMA GLUTAMYL TRANSPEPTIDASE 16 U/L (5-85); LACTATE DEHYDROGENASE 359 U/L (81-234); PHOSPHORUS 1.6 MG/DL (2.5-4.9)
--- NOTE | 2020-06-03 07:36 | NUR ---
NURSE NOTES: Received report from MANDEEP Osorio. Patient in bed resting, no active s/s cardiac, respiratory distress noticed at this time. Patient AOx0, NGT on left nares 16F, @ 74cm. Rectal tube draining well to gravity at this time, Jaime Cath draining well to gravity. IV on left upper arm 20G, asymptomatic, patent, intact. Patient generalized edema. Endorsed C. Diff stool collected, pending result. On Bipap 12/4 Fio2 70%, O2 sat 100% at this time. Bed in lowest position, side rails upx3, call light within reach, bed alarm on, Will continue to monitor.
[2020-06-03 08:00] VITALS: BP 115/61
[2020-06-03] MEDS: Vancomycin 1gm/D5W 275ml IVPB ONE ×4 (08:45→09:39)
[2020-06-03] MEDS: Heparin 5000 units/ml inj SUBQ SCH ×2 (08:45→20:24)
[2020-06-03] MEDS: Cefepime HCl 1 GM in D5W 55 ML IVPB SCH (08:54)
--- NOTE | 2020-06-03 09:36 | Pulmonology Progress Note ---
Subjective Interval Events: On BiPAP; DNR confirmed Constitutional: Reports: no symptoms HEENT: Repors: no symptoms Respiratory: Reports: no symptoms Cardiovascular: Reports: no symptoms Gastrointestinal/Abdominal: Reports: no symptoms Allergies: Coded Allergies: No Known Allergies (Unverified , 06/01/20) Objective Last 24 Hour Vital Signs Date Time Temp Pulse Resp B/P (MAP) Pulse Ox O2 Delivery O2 Flow Rate FiO2 06/03/20 08:00 70 06/03/20 08:00 Bi-pap 06/03/20 08:00 119 06/03/20 08:00 97.5 118 30 115/61 (79) 100 06/03/20 07:48 134 30 100 70 06/03/20 04:00 128 06/03/20 04:00 70 06/03/20 04:00 Bi-pap 06/03/20 04:00 97.7 110 34 113/65 (81) 97 06/03/20 03:02 115 39 97 70 06/03/20 01:43 137 35 97 70 06/03/20 00:00 Bi-pap 06/03/20 00:00 97.7 118 30 110/58 (75) 100 06/02/20 23:33 123 06/02/20 22:52 103 37 98 70 06/02/20 21:00 Bi-pap 06/02/20 20:00 70 06/02/20 20:00 97.3 124 34 110/66 (81) 100 06/02/20 20:00 119 06/02/20 20:00 Bi-pap 06/02/20 19:32 110 30 100 Bi-Pap 70 112 31 100 70 06/02/20 18:00 122 94/62 (73) 06/02/20 16:00 Bi-pap 06/02/20 16:00 70 06/02/20 16:00 98.2 109 29 85/54 (64) 100 06/02/20 16:00 118 06/02/20 15:03 99 32 99 70 06/02/20 14:36 144 87/56 (66) 06/02/20 12:09 94 34 100 80 06/02/20 12:00 Bi-pap 06/02/20 12:00 93 06/02/20 12:00 90 06/02/20 12:00 80 06/02/20 11:57 99.0 120 29 71/42 (52) 100 06/02/20 10:12 119 81/55 (64) Intake and Output 06/02/20 06/03/20 19:00 07:00 Intake Total 310 ml Output Total 400 ml 710 ml Balance -90 ml -710 ml IV Total 310 ml Output Urine Total 400 ml 650 ml Stool Total 60 ml # Bowel Movements 2 1 General Appearance: no acute distress HEENT: normocephalic Respiratory: chest wall non-tender, lungs clear Cardiovascular: normal peripheral pulses, normal rate Abdomen: normal bowel sounds Microbiology Date/Time Source Procedure Growth Status 06/01/20 17:23 Rectum VRE Culture - Final NO VANCOMYCIN RESISTANT ENTEROCOCCUS ... Complete 06/01/20 17:23 Nasal Nares Left MRSA Culture - Final NO METHICILLIN RESISTANT STAPH AUREUS... Complete 06/01/20 14:28 Blood Blood Culture - Preliminary NO GROWTH AFTER 24 HOURS Resulted 06/01/20 14:10 Blood Blood Culture - Preliminary NO GROWTH AFTER 24 HOURS Resulted 06/01/20 14:05 Nasopharynx SARS-CoV-2 RdRp Gene Assay - Final Complete Laboratory Tests 06/02/20 10:50: Lactic Acid Level 5.40H 06/02/20 15:25: Arterial Blood pH 7.390, Arterial Blood Partial Pressure CO2 23.5*L, Arterial Blood Partial Pressure O2 88.7, Arterial Blood HCO3 14.0*L, Arterial Blood Oxygen Saturation 96.5, Arterial Blood Base Excess -9.1*L, Beau Test Positive 06/03/20 04:53: Lactic Acid Level 5.50H, White Blood Count 16.3#H, Red Blood Count 3.79L, Hemoglobin 12.0, Hematocrit 34.0L, Mean Corpuscular Volume 90, Mean Corpuscular Hemoglobin 31.6H, Mean Corpuscular Hemoglobin Concent 35.3, Red Cell Distribution Width 11.9, Platelet Count 113L, Mean Platelet Volume 6.6, Neutrophils (%) (Auto) , Lymphocytes (%) (Auto) , Monocytes (%) (Auto) , Eosinophils (%) (Auto) , Basophils (%) (Auto) , Differential Total Cells Counted 100, Neutrophils % (Manual) 68, Lymphocytes % (Manual) 2L, Monocytes % (Manual) 3, Eosinophils % (Manual) 0, Basophils % (Manual) 0, Metamyelocytes % 1H, Band Neutrophils 26H, Platelet Estimate DecreasedL, Platelet Morphology Normal, Red Blood Cell Morphology Normal, Sodium Level 150H, Potassium Level 2.7*L, Chloride Level 120H, Carbon Dioxide Level 14L, Anion Gap 17H, Blood Urea Nitrogen 59H, Creatinine 1.0, Estimat Glomerular Filtration Rate 52.8, Glucose Level 125H, Hemoglobin A1c 5.5, Uric Acid 5.1, Calcium Level 8.8, Phosphorus Level 1.6L, M agnesium Level 2.0, Iron Level 8L, Total Iron Binding Capacity 88L, Percent Iron Saturation 9L, Unsaturated Iron Binding 80L, Ferritin 623H, Total Bilirubin 1.5H , Direct Bilirubin 0.5H, Gamma Glutamyl Transpeptidase 16, Aspartate Amino Transf (AST/SGOT) 64H, Alanine Aminotransferase (ALT/SGPT) 40, Alkaline Phosphatase 51, Lactate Dehydrogenase 359H, Troponin I 0.141H, C-Reactive Protein, Quantitative 31.3H, Pro-B-Type Natriuretic Peptide 3335H, Total Protein 5.3L, Albumin 2.6L, Globulin 2.7, Albumin/Globulin Ratio 1.0, Triglycerides Level 55, Cholesterol Level 66, LDL Cholesterol 22, HDL Cholesterol 27L, Cholesterol/HDL Ratio 2.4L, Vitamin B12 Level 1766H, Folate 10.7, Random Vancomycin Level 11.6 06/03/20 08:40: Lactic Acid Level [Pending] Current Medications Medications (Trade) Dose Ordered Sig/Oksana Route PRN Reason Start Time Stop Time Status Last Admin Dose Admin Acetaminophen (Tylenol) 650 mg Q4H PRN NG fever pain 06/01/20 17:00 07/01/20 16:59 Albuterol/ Ipratropium (Albuterol/ Ipratropium) 3 ml Q6HRT HHN 06/01/20 19:00 06/06/20 18:59 06/02/20 19:20 Aspirin (ASA) 81 mg DAILY NG 06/02/20 09:00 07/17/20 08:59 Cefepime HCl 1 gm/ Dextrose 55 ml @ 110 mls/hr Q24H IVPB 06/02/20 09:00 06/09/20 08:59 06/03/20 08:54 Dextrose 1,000 ml @ 100 mls/hr Q10H IV 06/02/20 11:00 07/02/20 10:59 06/03/20 08:44 Heparin Sodium (Porcine) (Heparin 5000 units/ml) 5,000 units EVERY 12 HOURS SUBQ 06/01/20 21:00 07/16/20 20:59 06/02/20 21:29 Vancomycin HCl ([facility] pharmacy to dose) 1 ea DAILY PRN MISC Per rx protocol 06/01/20 16:30 07/01/20 16:29 Vancomycin HCl 750 mg/Sodium Chloride 275 ml @ 183.333 mls/hr Q24H IVPB 06/04/20 12:00 06/09/20 11:59 Assessment/Plan Assessment/Plan IMPRESSION: 1. Bilateral pneumonia. 2. Respiratory failure. 3. BiPAP use. 4. Altered mental status. 5. Dementia. 6. Limited code. DISCUSSION: Continue BiPAP. Will check ABg and attempt to try ventimask Broad-spectrum antibiotics. NG tube for nutrition and fluids Await repeat COVID-19 testing. Mars Roth M.D. Mars Roth MD Jun 03, 2020 09:36
[2020-06-03] MEDS: Aspirin Baby 81mg NG SCH (09:38)
[2020-06-03] MEDS ORDERED: D5 1/2NS 1000ml IV ONE (09:38)
[2020-06-03] MEDS ORDERED: Tubing IV Secondary IV ONE (09:38)
--- NOTE | 2020-06-03 10:12 | NUR ---
NURSE NOTES: Titrating Fio2 100 % to 85% according to ABG result.
--- NOTE | 2020-06-03 11:16 | NUR ---
NURSE NOTES: Dr. Roth made aware of result of ABG per MD try Non-rebreather 1 hour then ABG. Order noted, entered, carried out, RT made aware.
[2020-06-03 12:00] VITALS: BP 130/78
--- NOTE | 2020-06-03 12:50 | NUR ---
NURSE NOTES: Dr. Emy Flores at the nursing station, made aware of elevated WBC and Lactic acid, no new order received at this time, Will continue to monitor.
--- NOTE | 2020-06-03 12:50 | NUR ---
NURSE NOTES: Per Dr. Guerra, administer KCl first then Potassium phosphate, Pharmacist, Luca made aware.
--- NOTE | 2020-06-03 13:20 | Nephrology Progress Note ---
Assessment/Plan Problem List: (1) Renal failure (2) Hypernatremia (3) Hypoxia (4) Hypotension (5) Severe sepsis (6) Elevated troponin (7) Bilateral pneumonia Assessment Renal failure Severe dehydration Sepsis with shock Pneumonia Electrolyte imbalances History of CVA with dementia Respiratory failure Plan Will cut down on IV fluid to 75 cc an hour Potassium and phosphorus IV supplement Continue nonrebreather mask/BiPAP as needed Albumin 5% 500 cc IV bolus as needed Monitor renal parameters electrolytes Antibiotics pulmonary support Discussed with RN Subjective ROS Limited/Unobtainable: Yes Objective Objective Last 24 Hour Vital Signs Date Time Temp Pulse Resp B/P (MAP) Pulse Ox O2 Delivery O2 Flow Rate FiO2 06/03/20 12:00 Non-Rebreather 15.0 06/03/20 12:00 97.9 115 29 130/78 (95) 100 06/03/20 12:00 122 06/03/20 11:20 15.0 06/03/20 11:01 120 32 100 85 06/03/20 10:00 85 06/03/20 08:00 100 06/03/20 08:00 Bi-pap 06/03/20 08:00 119 06/03/20 08:00 97.5 118 30 115/61 (79) 100 06/03/20 07:48 134 30 100 100 06/03/20 04:00 128 06/03/20 04:00 70 06/03/20 04:00 Bi-pap 06/03/20 04:00 97.7 110 34 113/65 (81) 97 06/03/20 03:02 115 39 97 70 06/03/20 01:43 137 35 97 70 06/03/20 00:00 Bi-pap 06/03/20 00:00 97.7 118 30 110/58 (75) 100 06/02/20 23:33 123 06/02/20 22:52 103 37 98 70 06/02/20 21:00 Bi-pap 06/02/20 20:00 70 06/02/20 20:00 97.3 124 34 110/66 (81) 100 06/02/20 20:00 119 06/02/20 20:00 Bi-pap 06/02/20 19:32 110 30 100 Bi-Pap 70 112 31 100 70 06/02/20 18:00 122 94/62 (73) 06/02/20 16:00 Bi-pap 06/02/20 16:00 70 06/02/20 16:00 98.2 109 29 85/54 (64) 100 06/02/20 16:00 118 06/02/20 15:03 99 32 99 70 06/02/20 14:36 144 87/56 (66) Intake and Output 06/02/20 06/03/20 19:00 07:00 Intake Total 310 ml Output Total 400 ml 710 ml Balance -90 ml -710 ml IV Total 310 ml Output Urine Total 400 ml 650 ml Stool Total 60 ml # Bowel Movements 2 1 Current Medications Medications (Trade) Dose Ordered Sig/Oksana Route PRN Reason Start Time Stop Time Status Last Admin Dose Admin Acetaminophen (Tylenol) 650 mg Q4H PRN NG fever pain 06/01/20 17:00 07/01/20 16:59 Albuterol/ Ipratropium (Albuterol/ Ipratropium) 3 ml Q6HRT HHN 06/01/20 19:00 06/06/20 18:59 06/02/20 19:20 Aspirin (ASA) 81 mg DAILY NG 06/02/20 09:00 07/17/20 08:59 06/03/20 09:38 Cefepime HCl 1 gm/ Dextrose 55 ml @ 110 mls/hr Q24H IVPB 06/02/20 09:00 06/09/20 08:59 06/03/20 08:54 Dextrose 1,000 ml @ 75 mls/hr [id number] IV 06/02/20 11:00 07/02/20 10:59 06/03/20 08:44 Heparin Sodium (Porcine) (Heparin 5000 units/ml) 5,000 units EVERY 12 HOURS SUBQ 06/01/20 21:00 07/16/20 20:59 06/02/20 21:29 Potassium Chloride 40 meq/ Sodium Chloride 570 ml @ 125 mls/hr ONCE IVPB 06/03/20 13:30 06/03/20 18:00 06/03/20 13:14 Potassium Phosphate 20 mm/ Sodium Chloride 281.6667 ml @ 46.944 m... ONCE IV 06/03/20 13:30 06/03/20 20:00 Vancomycin HCl ([facility] pharmacy to dose) 1 ea DAILY PRN MISC Per rx protocol 06/01/20 16:30 07/01/20 16:29 Vancomycin HCl 750 mg/Sodium Chloride 275 ml @ 183.333 mls/hr Q24H IVPB 06/04/20 12:00 06/09/20 11:59 Laboratory Tests 06/02/20 15:25: Arterial Blood pH 7.390, Arterial Blood Partial Pressure CO2 23.5*L, Arterial Blood Partial Pressure O2 88.7, Arterial Blood HCO3 14.0*L, Arterial Blood Oxygen Saturation 96.5, Arterial Blood Base Excess -9.1*L, Beau Test Positive 06/03/20 04:53: White Blood Count 16.3#H, Red Blood Count 3.79L, Hemoglobin 12.0, Hematocrit 34.0L, Mean Corpuscular Volume 90, Mean Corpuscular Hemoglobin 31.6H, Mean Corpuscular Hemoglobin Concent 35.3, Red Cell Distribution Width 11.9, Platelet Count 113L, Mean Platelet Volume 6.6, Neutrophils (%) (Auto) , Lymphocytes (%) (Auto) , Monocytes (%) (Auto) , Eosinophils (%) (Auto) , Basophils (%) (Auto) , Differential Total Cells Counted 100, Neutrophils % (Manual) 68, Lymphocytes % (Manual) 2L, Monocytes % (Manual) 3, Eosinophils % (Manual) 0, Basophils % (Manual) 0, Metamyelocytes % 1H, Band Neutrophils 26H, Platelet Estimate DecreasedL, Platelet Morphology Normal, Red Blood Cell Morphology Normal, Sodium Level 150H, Potassium Level 2.7*L, Chloride Level 120H, Carbon Dioxide Level 14L , Anion Gap 17H, Blood Urea Nitrogen 59H, Creatinine 1.0, Estimat Glomerular Filtration Rate 52.8, Glucose Level 125H, Hemoglobin A1c 5.5, Lactic Acid Level 5.50H, Uric Acid 5.1, Calcium Level 8.8, Phosphorus Level 1.6L, Magnesium Level 2.0, Iron Level 8L, Total Iron Binding Capacity 88L, Percent Iron Saturation 9L, Unsaturated Iron Binding 80L, Ferritin 623H, Total Bilirubin 1.5H, Direct Bilirubin 0.5H, Gamma Glutamyl Transpeptidase 16, Aspartate Amino Transf (AST/S GOT) 64H, Alanine Aminotransferase (ALT/SGPT) 40, Alkaline Phosphatase 51, Lactate Dehydrogenase 359H, Troponin I 0.141H, C-Reactive Protein, Quantitative 31.3H, Pro-B-Type Natriuretic Peptide 3335H, Total Protein 5.3L, Albumin 2.6L, Globulin 2.7, Albumin/Globulin Ratio 1.0, Triglycerides Level 55, Cholesterol Level 66, LDL Cholesterol 22, HDL Cholesterol 27L, Cholesterol/HDL Ratio 2.4L, Vitamin B12 Level 1766H, Folate 10.7, Random Vancomycin Level 11.6 06/03/20 08:40: Lactic Acid Level 5.30H 06/03/20 09:36: Arterial Blood pH 7.420, Arterial Blood Partial Pressure CO2 22.3*L, Arterial Blood Partial Pressure O2 156.8H, Arterial Blood HCO3 14.1*L, Arterial Blood Oxygen Saturation 98.5, Arterial Blood Base Excess -8.4L, Beau Test Positive 06/03/20 12:20: Arterial Blood pH 7.358, Arterial Blood Partial Pressure CO2 28.0L, Arterial Blood Partial Pressure O2 79.6, Arterial Blood HCO3 15.4*L, Arterial Blood Oxygen Saturation 94.8L, Arterial Blood Base Excess -8.7L, Beau Test Positive Height (Feet): 5 Height (Inches): 2.00 Weight (Pounds): 120 General Appearance: mild distress EENT: other - On nonrebreather mask Cardiovascular: tachycardia Respiratory/Chest: decreased breath sounds Abdomen: distended Asher Guerra MD Jun 03, 2020 13:20
[2020-06-03] MEDS ORDERED: Potassium Chloride 40 MEQ in Sodium Chloride 550 ML IVPB SCH (13:30)
[2020-06-03] MEDS ORDERED: Potassium Phosphate 20 MM in NS 275 ML IV SCH (13:30)
--- NOTE | 2020-06-03 13:32 | NUR ---
CASE MANAGEMENT: Faxed clinical info (face sheet /ER MD notes/ H&P/cx report and progress notes 06-02 thru 06-03/lab and imaging reports inc admit order) to [facility] @ [phone].
--- NOTE | 2020-06-03 13:45 | NUR ---
RESPIRATORY NOTE: Pt received on BiPAP settings: 12/, 18, 100%. Full face mask secured, with minimal leak. Pt sleeping. SpO2 and HR are within normal limits. Pt taken off BiPAP @1120 and switched to NRB 100%. No signs of distress at this time. Will continue to monitor
--- NOTE | 2020-06-03 14:45 | Consultation ---
DATE OF CONSULTATION: 06/03/2020 INFECTIOUS DISEASE CONSULTATION CONSULTING PHYSICIAN: Shemar Flores MD. REFERRING PHYSICIAN: Keenan Wright MD. This consult is for coverage of Dr. Abreu. REASON FOR CONSULT: Sepsis and pneumonia. HISTORY OF PRESENT ILLNESS: This is an 84-year-old female admitted on 06/01/2020 from a [place] [facility] facility. The patient was unresponsive for 20 minutes, was hypotensive with blood pressure of 68/30, was hypoxemic, had hypernatremia and hypokalemia. PAST MEDICAL HISTORY: Significant for dementia, hypertension, osteoarthritis. ALLERGIES: No known drug allergy. MEDICATIONS: Vancomycin, potassium chloride, cefepime, heparin, albuterol and ipratropium inhaler, Tylenol. SOCIAL HISTORY: [facility] resident. [place] in origin. No history of smoking, drug abuse, or alcohol abuse. REVIEW OF SYSTEMS: Unobtainable, the patient is unresponsive. PHYSICAL EXAMINATION: VITAL SIGNS: Temperature 97.5, pulse 120, respirations 32, blood pressure 115/61. GENERAL APPEARANCE: Seems to be thin. HEAD AND NECK: Getting oxygen by rebreathing mask. HEART: Tachycardic. LUNGS: Clear. ABDOMEN: Soft. EXTREMITIES: Edema of right upper extremity. LABORATORY AND DIAGNOSTIC DATA: WBC 16.3, hemoglobin 12, hematocrit 34, platelets 113,000. Band is 26%. Sodium 150, potassium 2.7, chloride 120, BUN 59, creatinine 1. Glucose is 125. Lactic acid is 5.3. Bilirubin is 1.5. BNP is elevated at 3335. Troponin is elevated 0.141, the highest level was 0.221. Chest x-ray showed bilateral left greater than large infiltrate, likely pneumonia. IMPRESSION: 1. Sepsis. 2. Bilateral pneumonia. 3. Hypoxemic respiratory failure. 4. Lactic acidosis. 5. Hypernatremia. 6. Hypokalemia. 7. Dementia. 8. Azotemia. 9. Dehydration. RECOMMENDATION: Continue with vancomycin and cefepime. We will follow up the cultures. At the end of my exam, I thank Dr. Wright, the primary doctor, for involving me in the care of this patient. Shemar Flores M.D. DR: ROBY JOB#: [id number] CC:
--- NOTE | 2020-06-03 15:40 | NUR ---
NURSE NOTES: Called Dr. Roth for follow up with result of ABG, awaiting for callback, will continue to monitor.
[2020-06-03 16:00] VITALS: BP 130/58
--- NOTE | 2020-06-03 16:42 | Cardiology Progress Note ---
Subjective DATE OF SERVICE: Jun 03, 2020 Remains tachypneic and hypoxic, on bipap. Hypotonic IVF being admin for severe free water deficit. Now has multiple, severe electrolyte abnormalities. 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 Objective Last 24 Hour Vital Signs Date Time Temp Pulse Resp B/P (MAP) Pulse Ox O2 Delivery O2 Flow Rate FiO2 06/03/20 16:00 Non-Rebreather 15.0 06/03/20 16:00 98.1 116 30 130/58 (82) 100 06/03/20 16:00 15.0 06/03/20 12:00 Non-Rebreather 15.0 06/03/20 12:00 97.9 115 29 130/78 (95) 100 06/03/20 12:00 122 06/03/20 12:00 15.0 06/03/20 11:20 15.0 06/03/20 11:01 120 32 100 85 06/03/20 10:00 85 06/03/20 08:00 100 06/03/20 08:00 Bi-pap 06/03/20 08:00 119 06/03/20 08:00 97.5 118 30 115/61 (79) 100 06/03/20 07:48 134 30 100 100 06/03/20 04:00 128 06/03/20 04:00 70 06/03/20 04:00 Bi-pap 06/03/20 04:00 97.7 110 34 113/65 (81) 97 06/03/20 03:02 115 39 97 70 06/03/20 01:43 137 35 97 70 06/03/20 00:00 Bi-pap 06/03/20 00:00 97.7 118 30 110/58 (75) 100 06/02/20 23:33 123 06/02/20 22:52 103 37 98 70 06/02/20 21:00 Bi-pap 06/02/20 20:00 70 06/02/20 20:00 97.3 124 34 110/66 (81) 100 06/02/20 20:00 119 06/02/20 20:00 Bi-pap 06/02/20 19:32 110 30 100 Bi-Pap 70 112 31 100 70 06/02/20 18:00 122 94/62 (73) ROS: unchanged from my eval of 06/01/20 HEENT: normal ENT inspection RHYTHM: Afib LUNGS: bilateral rhonchi, trach site clean ABDOMEN: normal bowel sounds, non tender, soft, distended EXTREMITIES: trace edema Laboratory Tests Test 06/03/20 04:53 06/03/20 08:40 06/03/20 09:36 06/03/20 12:20 White Blood Count 16.3 K/UL (4.8-10.8) #H Red Blood Count 3.79 M/UL (4.20-5.40) L Hemoglobin 12.0 G/DL (12.0-16.0) Hematocrit 34.0 % (37.0-47.0) L Mean Corpuscular Volume 90 FL (80-99) Mean Corpuscular Hemoglobin 31.6 PG (27.0-31.0) H Mean Corpuscular Hemoglobin Concent 35.3 G/DL (32.0-36.0) Red Cell Distribution Width 11.9 % (11.6-14.8) Platelet Count 113 K/UL (150-450) L Mean Platelet Volume 6.6 FL (6.5-10.1) Neutrophils (%) (Auto) % (45.0-75.0) Lymphocytes (%) (Auto) % (20.0-45.0) Monocytes (%) (Auto) % (1.0-10.0) Eosinophils (%) (Auto) % (0.0-3.0) Basophils (%) (Auto) % (0.0-2.0) Differential Total Cells Counted 100 Neutrophils % (Manual) 68 % (45-75) Lymphocytes % (Manual) 2 % (20-45) L Monocytes % (Manual) 3 % (1-10) Eosinophils % (Manual) 0 % (0-3) Basophils % (Manual) 0 % (0-2) Metamyelocytes % 1 % (0-0) H Band Neutrophils 26 % (0-8) H Platelet Estimate Decreased L Platelet Morphology Normal Red Blood Cell Morphology Normal Sodium Level 150 MMOL/L (136-145) H Potassium Level 2.7 MMOL/L (3.5-5.1) *L Chloride Level 120 MMOL/L (98-107) H Carbon Dioxide Level 14 MMOL/L (21-32) L Anion Gap 17 mmol/L (5-15) H Blood Urea Nitrogen 59 mg/dL (7-18) H Creatinine 1.0 MG/DL (0.55-1.30) Estimat Glomerular Filtration Rate 52.8 mL/min (>60) Glucose Level 125 MG/DL (74-106) H Hemoglobin A1c 5.5 % (4.3-6.0) Lactic Acid Level 5.50 mmol/L (0.4-2.0) H 5.30 mmol/L (0.66-2.22) H Uric Acid 5.1 MG/DL (2.6-7.2) Calcium Level 8.8 MG/DL (8.5-10.1) Phosphorus Level 1.6 MG/DL (2.5-4.9) L Magnesium Level 2.0 MG/DL (1.8-2.4) Iron Level 8 ug/dL (50-175) L Total Iron Binding Capacity 88 ug/dL (250-450) L Percent Iron Saturation 9 % (15-50) L Unsaturated Iron Binding 80 ug/dL (112-346) L Ferritin 623 NG/ML (8-388) H Total Bilirubin 1.5 MG/DL (0.2-1.0) H Direct Bilirubin 0.5 MG/DL (0.0-0.3) H Gamma Glutamyl Transpeptidase 16 U/L (5-85) Aspartate Amino Transf (AST/SGOT) 64 U/L (15-37) H Alanine Aminotransferase (ALT/SGPT) 40 U/L (12-78) Alkaline Phosphatase 51 U/L (46-116) Lactate Dehydrogenase 359 U/L (81-234) H Troponin I 0.141 ng/mL (0.000-0.056) C-Reactive Protein, Quantitative 31.3 mg/dL (0.00-0.90) H Pro-B-Type Natriuretic Peptide 3335 pg/mL (0-125) H Total Protein 5.3 G/DL (6.4-8.2) L Albumin 2.6 G/DL (3.4-5.0) L Globulin 2.7 g/dL Albumin/Globulin Ratio 1.0 (1.0-2.7) Triglycerides Level 55 MG/DL (30-150) Cholesterol Level 66 MG/DL (< 200) LDL Cholesterol 22 mg/dL (<100) HDL Cholesterol 27 MG/DL (40-60) L Cholesterol/HDL Ratio 2.4 (3.3-4.4) L Vitamin B12 Level 1766 PG/ML (193-986) H Folate 10.7 NG/ML (8.6-58.9) Random Vancomycin Level 11.6 ug/mL Arterial Blood pH 7.420 (7.350-7.450) 7.358 (7.350-7.450) Arterial Blood Partial Pressure CO2 22.3 mmHg (35.0-45.0) *L 28.0 mmHg (35.0-45.0) L Arterial Blood Partial Pressure O2 156.8 mmHg (75.0-100.0) H 79.6 mmHg (75.0-100.0) Arterial Blood HCO3 14.1 mmol/L (22.0-26.0) *L 15.4 mmol/L (22.0-26.0) *L Arterial Blood Oxygen Saturation 98.5 % (95-100) 94.8 % (95-100) L Arterial Blood Base Excess -8.4 (-2-2) L -8.7 (-2-2) L Beau Test Positive Positive Microbiology Date/Time Source Procedure Growth Status 06/01/20 17:23 Rectum VRE Culture - Final NO VANCOMYCIN RESISTANT ENTEROCOCCUS ... Complete 06/01/20 17:23 Nasal Nares Left MRSA Culture - Final NO METHICILLIN RESISTANT STAPH AUREUS... Complete 06/01/20 14:28 Blood Blood Culture - Preliminary NO GROWTH AFTER 24 HOURS Resulted 06/01/20 14:10 Blood Blood Culture - Preliminary NO GROWTH AFTER 24 HOURS Resulted 06/01/20 14:05 Nasopharynx SARS-CoV-2 RdRp Gene Assay - Final Complete Assessment/Plan Assessment/Plan Sepsis Shock Respiratory failure HC associated pneumonia Severe dehydration/hypernatremia/hyperchloremia Lactic acidosis Paroxysmal atrial fibrillation Acute myocardial ischemia Chronic diastolic CHF Acute renal failure Cerebrovascular disease with dementia Hypophosphatemia Hypokalemia CRITICAL & GUARDED Admit to SDU DNR/DNI IV antimicrobials Respiratory therapy Bipap Hypotonic IVF Serial lactic acid and troponin levels Replace lytes by IV route Keenan Wright MD Jun 03, 2020 16:42
--- NOTE | 2020-06-03 19:27 | NUR ---
NURSE HAND-OFF REPORT: Important Events on Shift: Titrate BIPAP to Non-rebreather Patient Status: guarded, stable Diet: Patient wish's respected/ order of Osmolite 1.2@ 20ml/h on hold Pending Orders: na Pending Results/Labs:Patric KAUR Pending MD notification:na Latest Vital Signs: Temperature 98.1 , Pulse 113 , B/P 130 /58 , Respiratory Rate 30 , O2 SAT 100 , Non-Rebreather, O2 Flow Rate 15.0 . Vital Sign Comment: stable EKG Rhythm: Atrial Fibrillation with RVR Rhythm change?: N MD Notified?: N - MD Response: Latest Rm Fall Score: 55 Fall Risk: High Risk Safety Measures: Call light Within Reach, Bed Alarm Zone 1, Side Rails Side Rails x3, Bed position Low and Locked. Fall Precautions: Yellow Socks Yellow Gown Door Sign Report given to MANDEEP Hill.
--- NOTE | 2020-06-03 19:28 | NUR ---
NURSE NOTES: Patient received from MANDEEP Giang. patient lethargic withdraws to light pain but does not open eyes. respirations shallow and tachypneic on nonrebreather 15L FiO2 100%. BP124/84 HR120 Afib on monitor and afebrile. Left upper arm #20 and left forearm #22 running D5W @75ml/hr. left nare NGT clamped and patent. Jaime catheter draining light rhonda urine. rectal tube noted with small amount of loose brown stool. bilateral arms +2 pitting edema with ecchymosis noted, bilateral heels boggy and sacral redness covered with Optifoam. patient repositioned and oral care provided.
[2020-06-03 20:00] VITALS: BP 124/84
[2020-06-04] VITALS: BP 103/76
--- NOTE | 2020-06-04 | NUR ---
NURSE NOTES: patient lethargic withdraws to deep pain but does not open eyes. respirations shallow and tachypneic on nonrebreather 15L FiO2 100%. BP103/76 HR119 Afib on monitor and afebrile. Left upper arm #20 and left forearm #22 running D5W @75ml/hr. left nare NGT clamped and patent. Jaime catheter draining light rhonda urine with sediment noted. rectal tube in place. patient repositioned and oral care provided.
[2020-06-04] MEDS: Albuterol/Ipratropium 3ml neb HHN SCH ×4 (01:58→19:27)
[2020-06-04 04:00] VITALS: BP 149/98
--- NOTE | 2020-06-04 04:00 | NUR ---
NURSE NOTES: patient lethargic withdraws to deep pain but does not open eyes. respirations shallow and tachypneic on nonrebreather 15L FiO2 100%. BP149/98 HR141 Afib on monitor and afebrile. Left upper arm #20 and left forearm #22 running D5W @75ml/hr. left nare NGT clamped and patent. Jaime catheter draining light rhonda urine with sediment noted. rectal tube in place. patient bathed, repositioned and oral care provided.
[2020-06-04 04:32] LABS: HEMATOCRIT 36.1 % (37.0-47.0); HEMOGLOBIN 12.8 G/DL (12.0-16.0); MEAN CORPUSCULAR VOLUME 90 FL (80-99); PLATELET COUNT 98 K/UL (150-450); RED BLOOD COUNT 4.03 M/UL (4.20-5.40); RED CELL DISTRIBUTION WIDTH 11.9 % (11.6-14.8); WHITE BLOOD COUNT 19.4 K/UL (4.8-10.8)
[2020-06-04 04:53] LABS: ALANINE AMINOTRANSFERASE 40 U/L (12-78); ALBUMIN 2.2 G/DL (3.4-5.0); ALBUMIN/GLOBULIN RATIO 0.9 (1.0-2.7); ALKALINE PHOSPHATASE 81 U/L (46-116); ANION GAP 11 mmol/L (5-15); ASPARTATE AMINO TRANSFERASE 52 U/L (15-37); BLOOD UREA NITROGEN 33 mg/dL (7-18); CARBON DIOXIDE 19 MMOL/L (21-32); CHLORIDE 118 MMOL/L (98-107); CREATININE 0.7 MG/DL (0.55-1.30); PHOSPHORUS 2.3 MG/DL (2.5-4.9); POTASSIUM 3.8 MMOL/L (3.5-5.1); SODIUM 148 MMOL/L (136-145)
--- NOTE | 2020-06-04 06:59 | NUR ---
NURSE HAND-OFF REPORT: Important Events on Shift:Afib HR 140's unsustained Patient Status: Diet: Pending Orders: Pending Results/Labs: Pending MD notification: Latest Vital Signs: Temperature 97.9 , Pulse 140 , B/P 149 /98 , Respiratory Rate 27 , O2 SAT 98 , Non-Rebreather, O2 Flow Rate 15.0 . Vital Sign Comment: EKG Rhythm: Atrial Fibrillation with RVR Rhythm change?: N MD Notified?: N - MD Response: Latest Rm Fall Score: 55 Fall Risk: High Risk Safety Measures: Call light Within Reach, Bed Alarm Zone 1, Side Rails Side Rails x3, Bed position Low and Locked. Fall Precautions: Yellow Socks Yellow Gown Door Sign Report given to MANDEEP Giang.
--- NOTE | 2020-06-04 07:07 | NUR ---
NURSE NOTES: Received report from MANDEEP Corbin. Patient in bed resting, A. fib with HR 130s, endorsed unsustained A.fib with RVR last night . NGT on the left nares, 74cm noted, 16F. IV on left arm 20G, asymptomatic, patent, intact. IVF D5W @ 75ml/h running. RT called for ABG order. Patient AOx0, non-verbal. Rectal tube patent, draining well to gravity, Jaime Catheter draining well to gravity at this time. Bed in lowest position, side rails upx3, call light within reach, bed alarm on, Will continue to monitor.
[2020-06-04 08:00] VITALS: BP 144/60
--- NOTE | 2020-06-04 08:18 | Cardiology Report ---
APPROVED REPORT EXAM: Two-dimensional and M-mode echocardiogram with Doppler and color Doppler. INDICATION Atrial Fibrillation M-Mode DIMENSIONS IVSd1.0 (0.7-1.1cm)Left Atrium (MM)3.7 (1.6-4.0cm) LVDd3.7 (3.5-5.6cm)Aortic Root3.3 (2.0-3.7cm) PWd1.0 (0.7-1.1cm)Aortic Cusp Exc.1.8 (1.5-2.0cm) IVSs1.8 cmEPSS1.0 (>1.0cm) LVDs2.5 (2.5-4.0cm) PWs1.3 cm <Conclusion> Technically difficult and limited study due to poor acoustic windows. Study quality precludes accurate assessment of regional wall motion. Normal left ventricular chamber size, systolic function and wall motion. Left ventricular ejection fraction estimated to be 55 %. No evidence of left ventricular hypertrophy. No evidence of pericardial effusion. All other cardiac chamber sizes are within normal limits. Focal aortic valve sclerosis with adequate cusp excursion. Thickened mitral valve leaflets with normal excursion. Mild mitral annulus and aortic root calcification. Pulmonic valve not visualized. Normal tricuspid valve structure. IVC is normal in size without physiological collapse. A color flow and spectral Doppler study was performed and revealed: Mild aortic regurgitation. Moderate mitral regurgitation. Left ventricular diastolic function could not be determined due to A-Fib. Moderate tricuspid regurgitation. Tricuspid systolic velocities suggests peak right ventricular systolic pressure of 49 mmHg, consistent with moderate pulmonary hypertension.
[2020-06-04] MEDS: Cefepime HCl 1 GM in D5W 55 ML IVPB SCH (08:32)
[2020-06-04] MEDS: Aspirin Baby 81mg NG SCH (08:32)
[2020-06-04] MEDS: Heparin 5000 units/ml inj SUBQ SCH ×2 (08:32→21:00)
--- NOTE | 2020-06-04 09:32 | NUR ---
RADIOLOGY DEPT., CHEST X-RAY DONE.-P.DYE
[2020-06-04] MEDS ORDERED: Potassium Phosphate 20 MM in NS 275 ML IV ONE (10:00)
--- NOTE | 2020-06-04 10:21 | Pulmonology Progress Note ---
Subjective ROS Limited/Unobtainable: Yes Interval Events: On NRBM; DNR confirmed Constitutional: Reports: no symptoms HEENT: Repors: no symptoms Respiratory: Reports: no symptoms Cardiovascular: Reports: no symptoms Gastrointestinal/Abdominal: Reports: no symptoms Allergies: Coded Allergies: No Known Allergies (Unverified , 06/01/20) Objective Last 24 Hour Vital Signs Date Time Temp Pulse Resp B/P (MAP) Pulse Ox O2 Delivery O2 Flow Rate FiO2 06/04/20 08:00 96.8 116 30 144/60 (88) 96 06/04/20 08:00 116 06/04/20 08:00 15.0 06/04/20 08:00 Non-Rebreather 15.0 06/04/20 07:42 100 Non-Rebreather 15.0 100 06/04/20 04:00 Non-Rebreather 15.0 06/04/20 04:00 15.0 06/04/20 04:00 126 06/04/20 04:00 97.9 140 27 149/98 (115) 98 06/04/20 01:58 132 97 06/04/20 00:00 127 06/04/20 00:00 98.1 119 30 103/76 (85) 100 06/04/20 00:00 Non-Rebreather 15.0 06/04/20 00:00 15.0 06/03/20 20:00 98.1 120 30 124/84 (97) 100 06/03/20 20:00 Non-Rebreather 15.0 06/03/20 20:00 15.0 06/03/20 19:46 112 06/03/20 19:44 134 98 06/03/20 16:00 Non-Rebreather 15.0 06/03/20 16:00 98.1 116 30 130/58 (82) 100 06/03/20 16:00 15.0 06/03/20 16:00 113 06/03/20 14:52 134 20 97 06/03/20 12:00 Non-Rebreather 15.0 06/03/20 12:00 97.9 115 29 130/78 (95) 100 06/03/20 12:00 122 06/03/20 12:00 15.0 06/03/20 11:20 15.0 10/18/20 11:01 120 32 100 85 Intake and Output 06/03/20 06/04/20 19:00 07:00 Intake Total 1301.562 ml 841.25 ml Output Total 650 ml 575 ml Balance 651.562 ml 266.25 ml Free Water 90 ml IV Total 1211.562 ml 841.25 ml Output Urine Total 600 ml 550 ml Stool Total 50 ml 25 ml General Appearance: no acute distress HEENT: normocephalic Respiratory: chest wall non-tender, lungs clear Cardiovascular: normal peripheral pulses, normal rate Abdomen: normal bowel sounds Microbiology Date/Time Source Procedure Growth Status 06/01/20 17:23 Rectum VRE Culture - Final NO VANCOMYCIN RESISTANT ENTEROCOCCUS ... Complete 06/01/20 17:23 Nasal Nares Left MRSA Culture - Final NO METHICILLIN RESISTANT STAPH AUREUS... Complete 06/01/20 14:28 Blood Blood Culture - Preliminary NO GROWTH AFTER 24 HOURS Resulted 06/01/20 14:10 Blood Blood Culture - Preliminary NO GROWTH AFTER 24 HOURS Resulted 06/01/20 14:05 Nasopharynx SARS-CoV-2 RdRp Gene Assay - Final Complete Laboratory Tests 06/03/20 12:20: Arterial Blood pH 7.358, Arterial Blood Partial Pressure CO2 28.0L, Arterial B lood Partial Pressure O2 79.6, Arterial Blood HCO3 15.4*L, Arterial Blood Oxygen Saturation 94.8L, Arterial Blood Base Excess -8.7L, Beau Test Positive 06/04/20 03:38: White Blood Count 19.4H, Red Blood Count 4.03L, Hemoglobin 12.8, Hematocrit 36.1L, Mean Corpuscular Volume 90, Mean Corpuscular Hemoglobin 31.7H, Mean Corpuscular Hemoglobin Concent 35.4, Red Cell Distribution Width 11.9, Platelet Count 98L, Mean Platelet Volume 6.8, Neutrophils (%) (Auto) , Lymphocytes (%) (Auto) , Monocytes (%) (Auto) , Eosinophils (%) (Auto) , Basophils (%) (Auto) , Differential Total Cells Counted 100, Neutrophils % (Manual) 89H, Lymphocytes % (Manual) 3L, Monocytes % (Manual) 4, Eosinophils % (Manual) 0, Basophils % (Manual) 0, Band Neutrophils 4, Platelet Estimate DecreasedL, Platelet Morpholo gy Normal, Red Blood Cell Morphology Normal, Sodium Level 148H, Potassium Level 3.8, Chloride Level 118H, Carbon Dioxide Level 19L, Anion Gap 11, Blood Urea Nitrogen 33H, Creatinine 0.7, Estimat Glomerular Filtration Rate > 60, Glucose Level 114H, Uric Acid 4.2, Calcium Level 9.0, Phosphorus Level 2.3L, Magnesium Level 1.9, Total Bilirubin 1.0, Aspartate Amino Transf (AST/SGOT) 52H, Alanine Aminotransferase (ALT/SGPT) 40, Alkaline Phosphatase 81, C-Reactive Protein, Quantitative 30.9H, Pro-B-Type Natriuretic Peptide 6543H, Total Protein 4.7L, Albumin 2.2L, Globulin 2.5, Albumin/Globulin Ratio 0.9L 06/04/20 07:41: Arterial Blood pH 7.359, Arterial Blood Partial Pressure CO2 29.1L, Arterial Blood Partial Pressure O2 80.3, Arterial Blood HCO3 16.0*L, Arterial Blood Oxygen Saturation 95.1, Arterial Blood Base Excess -8.1L, Beau Test Positive Current Medications Medications (Trade) Dose Ordered Sig/Oksana Route PRN Reason Start Time Stop Time Status Last Admin Dose Admin Acetaminophen (Tylenol) 650 mg Q4H PRN NG fever pain 06/01/20 17:00 07/01/20 16:59 Albuterol/ Ipratropium (Albuterol/ Ipratropium) 3 ml Q6HRT HHN 06/01/20 19:00 06/06/20 18:59 06/02/20 19:20 Aspirin (ASA) 81 mg DAILY NG 06/02/20 09:00 07/17/20 08:59 06/04/20 08:32 Cefepime HCl 1 gm/ Dextrose 55 ml @ 110 mls/hr Q24H IVPB 06/02/20 09:00 06/09/20 08:59 06/04/20 08:32 Dextrose 1,000 ml @ 75 mls/hr [id number] IV 06/02/20 11:00 07/02/20 10:59 06/04/20 05:47 Heparin Sodium (Porcine) (Heparin 5000 units/ml) 5,000 units EVERY 12 HOURS SUBQ 06/01/20 21:00 07/16/20 20:59 06/02/20 21:29 Potassium Phosphate 20 mm/ Sodium Chloride 281.6667 ml @ 46.944 m... ONCE ONCE IV 06/04/20 10:00 06/04/20 15:59 06/04/20 10:11 Vancomycin HCl (Vanco pharmacy to dose) 1 ea DAILY PRN MISC Per rx protocol 06/01/20 16:30 07/01/20 16:29 Vancomycin HCl 750 mg/Sodium Chloride 275 ml @ 183.333 mls/hr Q24H IVPB 06/04/20 12:00 06/09/20 11:59 Assessment/Plan Assessment/Plan IMPRESSION: 1. Bilateral pneumonia. 2. Respiratory failure. 3. Off BiPAP 4. Altered mental status. 5. Dementia. 6. Limited code. DISCUSSION: Continue NRBM. Reviewed ABg WBC increasing Broad-spectrum antibiotics. Await repeat COVID-19 testing. Irvin Simeon Omar Syed MD Jun 04, 2020 10:21
--- NOTE | 2020-06-04 10:47 | Nephrology Progress Note ---
Assessment/Plan Problem List: (1) Renal failure (2) Hypernatremia (3) Hypoxia (4) Hypotension (5) Severe sepsis (6) Elevated troponin (7) Bilateral pneumonia Assessment Renal failure Severe dehydration Sepsis with shock Pneumonia Electrolyte imbalances History of CVA with dementia Respiratory failure Plan June 04: Renal parameters improved. Down on IV fluid to 50 cc an hour. Continue to monitor electrolytes. Continue per consultants. Will cut down on IV fluid to 75 cc an hour Potassium and phosphorus IV supplement Continue nonrebreather mask/BiPAP as needed Albumin 5% 500 cc IV bolus as needed Monitor renal parameters electrolytes Antibiotics pulmonary support Discussed with RN Subjective ROS Limited/Unobtainable: Yes Objective Objective Last 24 Hour Vital Signs Date Time Temp Pulse Resp B/P (MAP) Pulse Ox O2 Delivery O2 Flow Rate FiO2 06/04/20 08:00 96.8 116 30 144/60 (88) 96 06/04/20 08:00 116 06/04/20 08:00 15.0 06/04/20 08:00 Non-Rebreather 15.0 06/04/20 07:42 100 Non-Rebreather 15.0 100 06/04/20 04:00 Non-Rebreather 15.0 06/04/20 04:00 15.0 06/04/20 04:00 126 06/04/20 04:00 97.9 140 27 149/98 (115) 98 06/04/20 01:58 132 97 06/04/20 00:00 127 06/04/20 00:00 98.1 119 30 103/76 (85) 100 06/04/20 00:00 Non-Rebreather 15.0 06/04/20 00:00 15.0 06/03/20 20:00 98.1 120 30 124/84 (97) 100 06/03/20 20:00 Non-Rebreather 15.0 06/03/20 20:00 15.0 06/03/20 19:46 112 06/03/20 19:44 134 98 06/03/20 16:00 Non-Rebreather 15.0 06/03/20 16:00 98.1 116 30 130/58 (82) 100 06/03/20 16:00 15.0 06/03/20 16:00 113 06/03/20 14:52 134 20 97 06/03/20 12:00 Non-Rebreather 15.0 06/03/20 12:00 97.9 115 29 130/78 (95) 100 06/03/20 12:00 122 06/03/20 12:00 15.0 06/03/20 11:20 15.0 06/03/20 11:01 120 32 100 85 Intake and Output 06/03/20 06/04/20 19:00 07:00 Intake Total 1301.562 ml 841.25 ml Output Total 650 ml 575 ml Balance 651.562 ml 266.25 ml Free Water 90 ml IV Total 1211.562 ml 841.25 ml Output Urine Total 600 ml 550 ml Stool Total 50 ml 25 ml Laboratory Tests 06/03/20 12:20: Arterial Blood pH 7.358, Arterial Blood Partial Pressure CO2 28.0L, Arterial Blood Partial Pressure O2 79.6, Arterial Blood HCO3 15.4*L, Arterial Blood Oxygen Saturation 94.8L, Arterial Blood Base Excess -8.7L, Beau Test Positive 06/04/20 03:38: White Blood Count 19.4H, Red Blood Count 4.03L, Hemoglobin 12.8, Hematocrit 36.1L, Mean Corpuscular Volume 90, Mean Corpuscular Hemoglobin 31.7H, Mean Corpuscular Hemoglobin Concent 35.4, Red Cell Distribution Width 11.9, Platelet Count 98L, Mean Platelet Volume 6.8, Neutrophils (%) (Auto) , Lymphocytes (%) (Auto) , Monocytes (%) (Auto) , Eosinophils (%) (Auto) , Basophils (%) (Auto) , Differential Total Cells Counted 100, Neutrophils % (Manual) 89H, Lymphocytes % (Manual) 3L, Monocytes % (Manual) 4, Eosinophils % (Manual) 0, Basophils % (Manual) 0, Band Neutrophils 4, Platelet Estimate DecreasedL, Platelet Morphology Normal, Red Blood Cell Morphology Normal, Sodium Level 148H, Potassium Level 3.8, Chloride Level 118H, Carbon Dioxide Level 19L, Anion Gap 11, Blood Urea Nitrogen 33H, Creatinine 0.7, Estimat Glomerular Filtration Rate > 60, Glucose Level 114H, Uric Acid 4.2, Calcium Level 9.0, Phosphorus Level 2.3L, Magnesium Level 1.9, Total Bilirubin 1.0, Aspartate Amino Transf (AST/SGOT) 52H, Alanine Aminotransferase (ALT/SGPT) 40, Alkaline Phosphatase 81, C-Reactive Protein, Quantitative 30.9H, Pro-B-Type Natriuretic Peptide 6543H, Total Protein 4.7L, Albumin 2.2L, Globulin 2.5, Albumin/Globulin Ratio 0.9L 06/04/20 07:41: Arterial Blood pH 7.359, Arterial Blood Partial Pressure CO2 29.1L, Arterial Blood Partial Pressure O2 80.3, Arterial Blood HCO3 16.0*L, Arterial Blood Oxygen Saturation 95.1, Arterial Blood Base Excess -8.1L, Beau Test Positive Height (Feet): 5 Height (Inches): 2.00 Weight (Pounds): 120 General Appearance: mild distress EENT: other - On nonrebreathing mask Cardiovascular: tachycardia Respiratory/Chest: decreased breath sounds Abdomen: distended Asher Guerra MD Jun 04, 2020 10:47
--- NOTE | 2020-06-04 10:53 | NUR ---
NURSE NOTES: Dr. Roth reviewed result of ABG, ordered Non-rebreather. Order noted, entered, carried out.
--- NOTE | 2020-06-04 11:21 | NUR ---
NURSE NOTES: Paged Dr. Wright regarding sustained A.fib HR 120-140, spoke to Tory, awaiting for callback.
--- NOTE | 2020-06-04 11:31 | Infectious Diseases Prog Note ---
Assessment/Plan Assessment/Plan antibiotics : vancomycin iv, cefepime A 1. pneumonia COVID 19 negative 2. leucocytosis increased 3. dementia 4. thrombocytopenia 5. hypertension P 1. continue iv vancomycin 2. d/c cefepime 3. start zosyn 4. sputum culture 5. will follow up culture Subjective ROS Limited/Unobtainable: Yes Allergies: Coded Allergies: No Known Allergies (Unverified , 06/01/20) Objective Last 24 Hour Vital Signs Date Time Temp Pulse Resp B/P (MAP) Pulse Ox O2 Delivery O2 Flow Rate FiO2 06/04/20 08:00 96.8 116 30 144/60 (88) 96 06/04/20 08:00 116 06/04/20 08:00 15.0 06/04/20 08:00 Non-Rebreather 15.0 06/04/20 07:42 100 Non-Rebreather 15.0 100 06/04/20 04:00 Non-Rebreather 15.0 06/04/20 04:00 15.0 06/04/20 04:00 126 06/04/20 04:00 97.9 140 27 149/98 (115) 98 06/04/20 01:58 132 97 06/04/20 00:00 127 06/04/20 00:00 98.1 119 30 103/76 (85) 100 06/04/20 00:00 Non-Rebreather 15.0 06/04/20 00:00 15.0 06/03/20 20:00 98.1 120 30 124/84 (97) 100 06/03/20 20:00 Non-Rebreather 15.0 06/03/20 20:00 15.0 06/03/20 19:46 112 06/03/20 19:44 134 98 06/03/20 16:00 Non-Rebreather 15.0 06/03/20 16:00 98.1 116 30 130/58 (82) 100 06/03/20 16:00 15.0 06/03/20 16:00 113 06/03/20 14:52 134 20 97 06/03/20 12:00 Non-Rebreather 15.0 06/03/20 12:00 97.9 115 29 130/78 (95) 100 06/03/20 12:00 122 06/03/20 12:00 15.0 Height (Feet): 5 Height (Inches): 2.00 Weight (Pounds): 120 HEENT: other - on face mask Respiratory/Chest: lungs clear Cardiovascular: normal rate, regular rhythm, no gallop/murmur Abdomen: soft, non tender Extremities: no edema Microbiology Date/Time Source Procedure Growth Status 06/01/20 17:23 Rectum - Final NO CARBAPENEM-RESISTANT ENTEROBACTERI... Complete 06/01/20 17:23 Rectum VRE Culture - Final NO VANCOMYCIN RESISTANT ENTEROCOCCUS ... Complete 06/01/20 17:23 Nasal Nares Left MRSA Culture - Final NO METHICILLIN RESISTANT STAPH AUREUS... Complete 06/01/20 14:28 Blood Blood Culture - Preliminary NO GROWTH AFTER 24 HOURS Resulted 06/01/20 14:10 Blood Blood Culture - Preliminary NO GROWTH AFTER 24 HOURS Resulted 06/01/20 14:05 Nasopharynx SARS-CoV-2 RdRp Gene Assay - Final Complete Laboratory Tests Test 06/03/20 12:20 06/04/20 03:38 06/04/20 07:41 Arterial Blood pH 7.358 (7.350-7.450) 7.359 (7.350-7.450) Arterial Blood Partial Pressure CO2 28.0 mmHg (35.0-45.0) L 29.1 mmHg (35.0-45.0) L Arterial Blood Partial Pressure O2 79.6 mmHg (75.0-100.0) 80.3 mmHg (75.0-100.0) Arterial Blood HCO3 15.4 mmol/L (22.0-26.0) *L 16.0 mmol/L (22.0-26.0) *L Arterial Blood Oxygen Saturation 94.8 % (95-100) L 95.1 % (95-100) Arterial Blood Base Excess -8.7 (-2-2) L -8.1 (-2-2) L Beau Test Positive Positive White Blood Count 19.4 K/UL (4.8-10.8) H Red Blood Count 4.03 M/UL (4.20-5.40) L Hemoglobin 12.8 G/DL (12.0-16.0) Hematocrit 36.1 % (37.0-47.0) L Mean Corpuscular Volume 90 FL (80-99) Mean Corpuscular Hemoglobin 31.7 PG (27.0-31.0) H Mean Corpuscular Hemoglobin Concent 35.4 G/DL (32.0-36.0) Red Cell Distribution Width 11.9 % (11.6-14.8) Platelet Count 98 K/UL (150-450) L Mean Platelet Volume 6.8 FL (6.5-10.1) Neutrophils (%) (Auto) % (45.0-75.0) Lymphocytes (%) (Auto) % (20.0-45.0) Monocytes (%) (Auto) % (1.0-10.0) Eosinophils (%) (Auto) % (0.0-3.0) Basophils (%) (Auto) % (0.0-2.0) Differential Total Cells Counted 100 Neutrophils % (Manual) 89 % (45-75) H Lymphocytes % (Manual) 3 % (20-45) L Monocytes % (Manual) 4 % (1-10) Eosinophils % (Manual) 0 % (0-3) Basophils % (Manual) 0 % (0-2) Band Neutrophils 4 % (0-8) Platelet Estimate Decreased L Platelet Morphology Normal Red Blood Cell Morphology Normal Sodium Level 148 MMOL/L (136-145) H Potassium Level 3.8 MMOL/L (3.5-5.1) Chloride Level 118 MMOL/L (98-107) H Carbon Dioxide Level 19 MMOL/L (21-32) L Anion Gap 11 mmol/L (5-15) Blood Urea Nitrogen 33 mg/dL (7-18) H Creatinine 0.7 MG/DL (0.55-1.30) Estimat Glomerular Filtration Rate > 60 mL/min (>60) Glucose Level 114 MG/DL (74-106) H Uric Acid 4.2 MG/DL (2.6-7.2) Calcium Level 9.0 MG/DL (8.5-10.1) Phosphorus Level 2.3 MG/DL (2.5-4.9) L Magnesium Level 1.9 MG/DL (1.8-2.4) Total Bilirubin 1.0 MG/DL (0.2-1.0) Aspartate Amino Transf (AST/SGOT) 52 U/L (15-37) H Alanine Aminotransferase (ALT/SGPT) 40 U/L (12-78) Alkaline Phosphatase 81 U/L (46-116) C-Reactive Protein, Quantitative 30.9 mg/dL (0.00-0.90) H Pro-B-Type Natriuretic Peptide 6543 pg/mL (0-125) H Total Protein 4.7 G/DL (6.4-8.2) L Albumin 2.2 G/DL (3.4-5.0) L Globulin 2.5 g/dL Albumin/Globulin Ratio 0.9 (1.0-2.7) L Current Medications Medications (Trade) Dose Ordered Sig/Oksana Route PRN Reason Start Time Stop Time Status Last Admin Dose Admin Acetaminophen (Tylenol) 650 mg Q4H PRN NG fever pain 06/01/20 17:00 07/01/20 16:59 Albuterol/ Ipratropium (Albuterol/ Ipratropium) 3 ml Q6HRT HHN 06/01/20 19:00 06/06/20 18:59 06/02/20 19:20 Aspirin (ASA) 81 mg DAILY NG 06/02/20 09:00 07/17/20 08:59 06/04/20 08:32 Cefepime HCl 1 gm/ Dextrose 55 ml @ 110 mls/hr Q24H IVPB 06/02/20 09:00 06/09/20 08:59 06/04/20 08:32 Dextrose 1,000 ml @ 50 mls/hr Q20H IV 06/02/20 11:00 07/02/20 10:59 06/04/20 05:47 Heparin Sodium (Porcine) (Heparin 5000 units/ml) 5,000 units EVERY 12 HOURS SUBQ 06/01/20 21:00 07/16/20 20:59 06/02/20 21:29 Potassium Phosphate 20 mm/ Sodium Chloride 281.6667 ml @ 46.944 m... ONCE ONCE IV 06/04/20 10:00 06/04/20 15:59 06/04/20 10:11 Vancomycin HCl ([facility] pharmacy to dose) 1 ea DAILY PRN MISC Per rx protocol 06/01/20 16:30 07/01/20 16:29 Vancomycin HCl 750 mg/Sodium Chloride 275 ml @ 183.333 mls/hr Q24H IVPB 06/04/20 12:00 06/09/20 11:59 Enrique Abreu MD Jun 04, 2020:31
[2020-06-04] MEDS ORDERED: dilTIAZem HCl 25mg/5ml Inj IVP SCH (11:42)
[2020-06-04] MEDS: Vancomycin 750mg/NS 275ml IVPB SCH ×2 (11:52)
--- NOTE | 2020-06-04 11:59 | NUR ---
NURSE NOTES: Dr. Wright made aware sustained A.fib, 120-140, per MD one time does IVP Diltiazem 20mg, 60mg Diltiazem Q6HRs via NGT. Order noted, entered, carried out. Per MD, start feeding.
[2020-06-04 12:00] VITALS: BP 110/65
--- NOTE | 2020-06-04 12:50 | Diagnostic Imaging Report ---
Indication: Shortness of breath Technique: XRAY Chest 1v Comparison: 06/01/2020 Findings: Significant interval worsening of aeration with development of layering small moderate bilateral pleural effusions and increasing bilateral infiltrates with confluent infiltrates noted in the perihilar regions and in the left base. There is also interstitial opacification/edema. Heart borders are obscured. Atherosclerotic calcifications noted in the aortic arch. Bones are demineralized and there are multilevel degenerative changes in the spine. There is been interval placement of an enteric tube which courses below the level of diaphragms, tip beyond the inferior margin of the film. IMPRESSION: Significant interval worsening of aeration compared to prior chest radiograph 06/01/2016 with development of layering bilateral pleural effusions and bilateral interstitial and alveolar infiltrates. Findings may be related to CHF/pulmonary edema and/or multifocal pneumonia. Clinical correlation and follow-up recommended. Interval placement of enteric tube.
--- NOTE | 2020-06-04 13:00 | NUR ---
RD ASSESSMENT & RECOMMENDATIONS SEE CARE ACTIVITY FOR COMPLETE ASSESSMENT DAILY ESTIMATED NEEDS: Needs based on Pulmonary, underweight/ 48kg 30-35 kcals/kg 3649-0622 total kcals 1-1.5 g protein/kg 48-75 g total protein 25-30 mL/kg 9375-5551 total fluid mLs NUTRITION DIAGNOSIS: Swallowing difficulty R/T dysphagia, respiratory status as evidenced by s/p NGT insertion, pt to start NGT feeds, now off BIPAP, on non-rebreather mask. CURRENT TF:Osmolite 1.2 @ 20ml/hr x 24 hrs PO DIET RECOMMENDATIONS: [employer] eval prior to oral diet for safety of PO intake ENTERAL NUTRITION RECOMMENDATIONS: Osmolite 1.2 @ 50ml/hr x 24 hrs to provide 1200ml, 1440kcal, 67g prot, 984ml free water * NGT feeds while off BIPAP - increase goal rate to 50ml/hr x 24 hrs to meet 100% est kcal/prot needs. - HOB over 30 degrees - water flush without IVF : 100ml q 8hrs ADDITIONAL RECOMMENDATIONS: * Per SNF: HT= 63", 106lbs (05/17/20) * Monitor hemodynamic stability and BIPAP usage, ability to feed -> now no longer hypotensive, off BIPAP * Monitor lytes, replete as needed (low phos) * F/up w/ WC eval for BL heels
[2020-06-04] MEDS: Piperacillin/Tazobactam 3.375 GM in NS 110 ML IVPB SCH ×2 (14:36→21:34)
--- NOTE | 2020-06-04 15:52 | NUR ---
NURSE NOTES:WOUND CARE NOTES:Pt presented on admission with multiple Pressure injuries. Non-Blanchable erythema without induration R thoracic. Sacral DTPI(L)5.5cmx (W)8cm.Base of wound is maroon with an area of induration at sacrococcygeal area.Marginal erythema along borders. Scrotum is erythematous. R heel is maroon and boggy (L)5cm x (W)5cm. L heel is boggy with non-blanchable erythema(L)4.2cm x (W)4cm. Tx.Plan:Apply Cavilon skin Barrier R thoracic.Cover with Optifoam drsg . Change every 7 days and prn. Apply Moisture Barrier Paste to Sacrum. Cover with Optifoam drsg. Change every 3 days and prn. Apply Moisture Barrier Paste to Scrotum with each incontinence care. Apply Cavilon Skin Barrier to both heels. Cover each heel with Optifoam drsg.Change every 7 days and prn. Reposition at least every 2 hours or as tolerated. Off-load heels with pillow. APM/GABRIELLA Mattress overlay.
[2020-06-04 16:00] VITALS: BP 120/62
--- NOTE | 2020-06-04 16:32 | NUR ---
CASE MANAGEMENT:REVIEW BIBA FROM [facility]; AMS SI: SEVERE SEPSIS. RENAL FAILURE. BILATERAL PNA 97.3 80 25 60/31 90% ON 15L NRB NA+161 K-3.2 BUN+82 CR+1.9 TROPONIN(+) 0.100 IS: IV VANCOMYCIN IV CEFEPIME 1L NS BOLUS X3 ASA HI CHEST XRAY : TO STEP DOWN UNIT
[2020-06-04] MEDS: dilTIAZem HCl 60mg tab NG SCH ×2 (17:39→23:56)
--- NOTE | 2020-06-04 17:53 | NUR ---
INSURANCE CLINICALS/REVIEW FAXED TO [facility] - CM: Mago morrison [id number] Fax Clinicals: Scan - Fax Clinicals: [phone]
--- NOTE | 2020-06-04 19:00 | NUR ---
NURSE NOTES: Per Dr. Wright, consult with Dr. Luther for wound. Order noted, entered
--- NOTE | 2020-06-04 19:24 | NUR ---
NURSE HAND-OFF REPORT: Important Events on Shift: Cardizem IVP, PO given A. fib controlled HR 90s Patient Status: guarded/stable Diet: Osmolite 1.2 @ 20ml/h Pending Orders: na Pending Results/Labs:na Pending MD notification:na Latest Vital Signs: Temperature 97.7 , Pulse 102 , B/P 120 /62 , Respiratory Rate 25 , O2 SAT 97 , Non-Rebreather, O2 Flow Rate 15.0 . Vital Sign Comment: stable EKG Rhythm: Atrial Fibrillation with RVR Rhythm change?: N Notified?: N - MD Response: Latest Rm Fall Score: 55 Fall Risk: High Risk Safety Measures: Call light Within Reach, Bed Alarm Zone 1, Side Rails Side Rails x3, Bed position Low and Locked. Fall Precautions: Yellow Socks Yellow Gown Door Sign Report given to MANDEEP DANIELS.
--- NOTE | 2020-06-04 19:25 | NUR ---
NURSE NOTES: Received report from MANDEEP Giang. Patient asleep in bed, facial grimacing to deep pain stimulation, afebrile and Pt is tachypneic 37 bpm with labor breathing. DNR/DNI code status with POLST signed on the chart. On NRB at 15lpm pt saturating 94-95%. On osmolite 1.2 at 20cc/hr via left NGT intact, flushed without any residual noted. Pt tolerating well the feeding formula. With left upper arm 20g and left Forearm 22g iv lines intact, patent and asymptomatic. with Jaime catheter to urine bag draining well below the bladder via gravity. With rectal tube in place draining as well. Needs were attended. Call light within reach. Bed rails are up and wheels are locked. Continue plan of care
[2020-06-04 20:00] VITALS: BP 102/68
--- NOTE | 2020-06-04 21:34 | NUR ---
NURSE NOTES: Pt platelet 98. No active bleeding. Held Heparin
--- NOTE | 2020-06-04 22:13 | Consultation ---
History of Present Illness General Date patient seen: Jun 04, 2020 Reason for Hospitalization: Altered Mental Status Present Illness HPI This is an 84-year-old male patient was sent in from [facility]. Apparently she was unresponsive for 20 minutes before paramedics were called. They found her hypotensive and hypoxic. 150 cc of normal saline were started in the field. The patient is DNR with comfort measures only. Patient has history of dementia hypertension and prior pneumonia,. Patient has a history of dysphagia. admitted for the care management surgical to body assist with care patient seen, patient evaluated, chart reviewed Allergies: Coded Allergies: No Known Allergies (Unverified , 06/01/20) COVID-19 Screening Contact w/high risk pt: No Experienced COVID-19 symptoms?: No Medication History Scheduled Amlodipine Besylate (Norvasc), 5 MG ORAL DAILY, (Reported) Bethanechol Chl (Bethanechol Chloride), 25 MG ORAL DAILY, (Reported) Cranberry Fruit (Cranberry), 450 MG PO BID, (Reported) Hydrochlorothiazide* (Hydrochlorothiazide*), 12.5 MG ORAL DAILY, (Reported) Losartan Potassium* (Cozaar*), 50 MG ORAL DAILY, (Reported) Lovastatin (Lovastatin), 10 MG ORAL EVENING, (Reported) Megestrol Acetate (Megestrol Acetate), 10 ML PO DAILY, (Reported) Melatonin (Melatonin), 3 MG ORAL BEDTIME, (Reported) Multivitamin With Minerals (Multivitamins With Minerals*), 1 TAB ORAL DAILY, (Reported) Omeprazole (Omeprazole), 20 MG ORAL DAILY, (Reported) Tamsulosin HCl (Flomax), 0.4 MG ORAL DAILY, (Reported) Scheduled PRN Acetaminophen* (Tylenol*), 650 MG PO Q4H PRN for Mild Pain/Temp > 100.5, (Reported) Bisacodyl (Bisacodyl), 10 MG RC DAILY PRN for Constipation, (Reported) Magnesium Hydroxide* (Milk Of Magnesia*), 30 ML ORAL DAILY PRN for Constipation, (Reported) Miscellaneous Medications Mvi, Adult No.4 With Vit K (Infuvite Adult), 10 ML IV, (Reported) Discontinued Medications Bisacodyl* (Dulcolax*), 10 MG RECTAL ONCE, (Reported) Discontinued Reason: Prescription changed Megestrol Acetate,Micronized (Megestrol Acetate), 400 MG MC, (Reported) Discontinued Reason: Prescription changed Multivitamins* (Multivitamins*), 1 TAB ORAL DAILY, (Reported) Discontinued Reason: Prescription changed Patient History Limited by: age, medical condition History Provided By: Medical Record, PMD Healthcare decision maker N Resuscitation status Advanced Directive on File Past Medical/Surgical History Past Medical/Surgical History: (1) Hypernatremia (2) Renal failure (3) COVID-19 ruled out by laboratory testing (4) Hypoxia (5) Hypotension (6) Severe sepsis (7) Elevated troponin (8) Bilateral pneumonia Review of Systems Review of Symptoms General ROS: no weight loss or fever Psychological ROS: no depression or mood changes, no memory loss Ophthalmic ROS: no visual changes or eye irritation ENT ROS: no nasal congestion, hearing loss, dizziness Allergy and Immunology ROS: no allergic symptoms or urticaria Hematological and Lymphatic ROS: no swollen glands, unusual bleeding or bruising Endocrine ROS: no polyuria, polydipsia, weight changes, temperature intolerance Respiratory ROS: no cough, shortness of breath, or wheezing Cardiovascular ROS: no chest pain or dyspnea on exertion Gastrointestinal ROS: denies abdominal pain, bright red blood in stool. Musculoskeletal ROS: no myalgias or arthralgias Neurological ROS: no TIA or stroke symptoms Dermatological ROS: no new or changing skin lesions, rashes or pruritis limited given medical condition Physical Exam Physical Exam General Appearance: mild distress, other - Eyes closed but responds to pain, Chronically Ill Head: normocephalic Eyes: bilateral eye other - Eyes closed ENT: dry mucus membranes Neck: supple Respiratory: respiratory distress - Mild, rhonchi Cardiovascular #1: regular rate, rhythm, no edema Cardiovascular #2: 2+ radial (L) Gastrointestinal: non tender, decreased bowel sounds Genitourinary: no CVA tenderness Musculoskeletal: back normal Neurologic: aphasia, other - Response to pain, moves all four extremities Psychiatric: depressed affect Skin: Decubitus/Ulcer - Heels, stage I right stage II left, warm/dry Last 24 Hour Vital Signs Date Time Temp Pulse Resp B/P (MAP) Pulse Ox O2 Delivery O2 Flow Rate FiO2 06/04/20 20:00 15.0 06/04/20 20:00 Non-Rebreather 15.0 06/04/20 20:00 97.7 91 25 102/68 (79) 97 06/04/20 19:28 96 20 95 Non-Rebreather 15.0 100 92 20 94 06/04/20 19:28 94 Non-Rebreather 15.0 100 06/04/20 19:03 89 06/04/20 17:39 102 120/62 06/04/20 16:00 15.0 06/04/20 16:00 102 06/04/20 16:00 Non-Rebreather 15.0 06/04/20 16:00 97.7 111 25 120/62 (81) 97 06/04/20 12:00 15.0 06/04/20 12:00 Non-Rebreather 15.0 06/04/20 12:00 135 06/04/20 12:00 97.3 120 26 110/65 (80) 96 06/04/20 11:52 140 123/78 06/04/20 08:00 96.8 116 30 144/60 (88) 96 06/04/20 08:00 116 06/04/20 08:00 15.0 06/04/20 08:00 Non-Rebreather 15.0 06/04/20 07:42 100 Non-Rebreather 15.0 100 06/04/20 04:00 Non-Rebreather 15.0 06/04/20 04:00 15.0 06/04/20 04:00 126 06/04/20 04:00 97.9 140 27 149/98 (115) 98 06/04/20 01:58 132 97 06/04/20 00:00 127 06/04/20 00:00 98.1 119 30 103/76 (85) 100 06/04/20 00:00 Non-Rebreather 15.0 06/04/20 00:00 15.0 Intake and Output 06/03/20 06/04/20 19:00 07:00 Intake Total 1301.562 ml 841.25 ml Output Total 650 ml 575 ml Balance 651.562 ml 266.25 ml Free Water 90 ml IV Total 1211.562 ml 841.25 ml Output Urine Total 600 ml 550 ml Stool Total 50 ml 25 ml Laboratory Tests Test 06/04/20 03:38 06/04/20 07:41 White Blood Count 19.4 K/UL (4.8-10.8) H Red Blood Count 4.03 M/UL (4.20-5.40) L Hemoglobin 12.8 G/DL (12.0-16.0) Hematocrit 36.1 % (37.0-47.0) L Mean Corpuscular Volume 90 FL (80-99) Mean Corpuscular Hemoglobin 31.7 PG (27.0-31.0) H Mean Corpuscular Hemoglobin Concent 35.4 G/DL (32.0-36.0) Red Cell Distribution Width 11.9 % (11.6-14.8) Platelet Count 98 K/UL (150-450) L Mean Platelet Volume 6.8 FL (6.5-10.1) Neutrophils (%) (Auto) % (45.0-75.0) Lymphocytes (%) (Auto) % (20.0-45.0) Monocytes (%) (Auto) % (1.0-10.0) Eosinophils (%) (Auto) % (0.0-3.0) Basophils (%) (Auto) % (0.0-2.0) Differential Total Cells Counted 100 Neutrophils % (Manual) 89 % (45-75) H Lymphocytes % (Manual) 3 % (20-45) L Monocytes % (Manual) 4 % (1-10) Eosinophils % (Manual) 0 % (0-3) Basophils % (Manual) 0 % (0-2) Band Neutrophils 4 % (0-8) Platelet Estimate Decreased L Platelet Morphology Normal Red Blood Cell Morphology Normal Sodium Level 148 MMOL/L (136-145) H Potassium Level 3.8 MMOL/L (3.5-5.1) Chloride Level 118 MMOL/L (98-107) H Carbon Dioxide Level 19 MMOL/L (21-32) L Anion Gap 11 mmol/L (5-15) Blood Urea Nitrogen 33 mg/dL (7-18) H Creatinine 0.7 MG/DL (0.55-1.30) Estimat Glomerular Filtration Rate > 60 mL/min (>60) Glucose Level 114 MG/DL (74-106) H Uric Acid 4.2 MG/DL (2.6-7.2) Calcium Level 9.0 MG/DL (8.5-10.1) Phosphorus Level 2.3 MG/DL (2.5-4.9) L Magnesium Level 1.9 MG/DL (1.8-2.4) Total Bilirubin 1.0 MG/DL (0.2-1.0) Aspartate Amino Transf (AST/SGOT) 52 U/L (15-37) H Alanine Aminotransferase (ALT/SGPT) 40 U/L (12-78) Alkaline Phosphatase 81 U/L (46-116) C-Reactive Protein, Quantitative 30.9 mg/dL (0.00-0.90) H Pro-B-Type Natriuretic Peptide 6543 pg/mL (0-125) H Total Protein 4.7 G/DL (6.4-8.2) L Albumin 2.2 G/DL (3.4-5.0) L Globulin 2.5 g/dL Albumin/Globulin Ratio 0.9 (1.0-2.7) L Arterial Blood pH 7.359 (7.350-7.450) Arterial Blood Partial Pressure CO2 29.1 mmHg (35.0-45.0) L Arterial Blood Partial Pressure O2 80.3 mmHg (75.0-100.0) Arterial Blood HCO3 16.0 mmol/L (22.0-26.0) *L Arterial Blood Oxygen Saturation 95.1 % (95-100) Arterial Blood Base Excess -8.1 (-2-2) L Beau Test Positive Height (Feet): 5 Height (Inches): 2.00 Weight (Pounds): 120 Medications Current Medications Medications (Trade) Dose Ordered Sig/Oksnaa Route PRN Reason Start Time Stop Time Status Last Admin Dose Admin Acetaminophen (Tylenol) 650 mg Q4H PRN NG fever pain 06/01/20 17:00 07/01/20 16:59 Albuterol/ Ipratropium (Albuterol/ Ipratropium) 3 ml Q6HRT HHN 06/01/20 19:00 06/06/20 18:59 06/04/20 19:27 Aspirin (ASA) 81 mg DAILY NG 06/02/20 09:00 07/17/20 08:59 06/04/20 08:32 Dextrose 1,000 ml @ 50 mls/hr Q20H IV 06/02/20 11:00 07/02/20 10:59 06/04/20 05:47 Diltiazem HCl (Cardizem Tab) 60 mg EVERY 6 HOURS NG 06/04/20 18:00 11/18/20 17:59 06/04/20 17:39 Heparin Sodium (Porcine) (Heparin 5000 units/ml) 5,000 units EVERY 12 HOURS SUBQ 06/01/20 21:00 07/16/20 20:59 06/02/20 21:29 Piperacillin Sod/ Tazobactam Sod 3.375 gm/Sodium Chloride 110 ml @ 27.5 mls/hr EVERY 8 HOURS IVPB 06/04/20 14:00 06/09/20 13:59 06/04/20 21:34 Vancomycin HCl (Vanco pharmacy to dose) 1 ea DAILY PRN MISC Per rx protocol 06/01/20 16:30 07/01/20 16:29 Vancomycin HCl 750 mg/Sodium Chloride 275 ml @ 183.333 mls/hr Q24H IVPB 06/04/20 12:00 06/09/20 11:59 06/04/20 11:52 Assessment/Plan Problem List: (1) Malnutrition ICD Codes: E46 - Unspecified protein-calorie malnutrition SNOMED: 03297827 (2) Decubitus skin ulcer Assessment & Plan: Pt presented on admission with multiple Pressure injuries. Non-Blanchable erythema without induration R thoracic. Sacral DTPI(L)5.5cmx (W)8cm.Base of wound is maroon with an area of induration at sacrococcygeal area.Marginal erythema along borders. Scrotum is erythematous. R heel is maroon and boggy (L)5cm x (W)5cm. L heel is boggy with non-blanchable erythema(L)4.2cm x (W)4cm. Tx.Plan: Apply Cavilon skin Barrier R thoracic.Cover with Optifoam drsg . Change every 7 days and prn. Apply Moisture Barrier Paste to Sacrum. Cover with Optifoam drsg. Change every 3 days and prn. Apply Moisture Barrier Paste to Scrotum with each incontinence care. Apply Cavilon Skin Barrier to both heels. Cover each heel with Optifoam drsg.Change every 7 days and prn. Reposition at least every 2 hours or as tolerated. Off-load heels with pillow. APM/GABRIELLA Mattress overlay. ICD Codes: L89.90 - Pressure ulcer of unspecified site, unspecified stage SNOMED: 043962217 (3) Hypernatremia ICD Codes: E87.0 - Hyperosmolality and hypernatremia SNOMED: 430638803, 593396567 (4) Renal failure ICD Codes: N19 - Unspecified kidney failure SNOMED: 01857166, 146428223 Qualifiers: Qualified Codes: N19 - Unspecified kidney failure (5) COVID-19 ruled out by laboratory testing ICD Codes: Z03.818 - Encounter for observation for suspected exposure to other biological agents ruled out SNOMED: 707498243, 131133313 (6) Hypoxia ICD Codes: R09.02 - Hypoxemia; R65.20 - Severe sepsis without septic shock SNOMED: 899720244, 743951421, 099289576 (7) Hypotension ICD Codes: I95.9 - Hypotension, unspecified SNOMED: 45394344, 165241568, 817235155 Qualifiers: Qualified Codes: I95.89 - Other hypotension (8) Severe sepsis Assessment & Plan: 84M with worsening leukocytosis, lactic acidosis, anemia, malnutrition, cxr noted, exam as above wounds unlikely etiology. no abscess. no drainage. cont abx nutritional optimization labs ordered will follow with recs thank you ICD Codes: A41.9 - Sepsis, unspecified organism; R65.20 - Severe sepsis without septic shock SNOMED: 18753704 (9) Elevated troponin ICD Codes: R77.8 - Other specified abnormalities of plasma proteins; R65.20 - Severe sepsis without septic shock SNOMED: 794020451, 904629964, 256021751 (10) Bilateral pneumonia ICD Codes: J18.9 - Pneumonia, unspecified organism SNOMED: 649170114, 321064997, 696019046 Qualifiers: Qualified Codes: J18.9 - Pneumonia, unspecified organism Martin Luther Jun 04, 2020 22:13
--- NOTE | 2020-06-04 23:18 | Cardiology Progress Note ---
Subjective DATE OF SERVICE: Jun 04, 2020 Remains tachypneic and hypoxic, on bipap. Hypotonic IVF being admin for severe free water deficit. Still has multiple, severe electrolyte abnormalities. Monitor: Paroxysmal atrial fibrillation with RVR Labs reviewed Advanced directives and Polst reaffirmed with responsible parties yesterday - DNR/DNI and no chcf artificial nutrition CXR (06/04) reveals worsening infiltrates and pl. effusions Objective Last 24 Hour Vital Signs Date Time Temp Pulse Resp B/P (MAP) Pulse Ox O2 Delivery O2 Flow Rate FiO2 06/04/20 20:00 15.0 06/04/20 20:00 Non-Rebreather 15.0 06/04/20 20:00 97.7 91 25 102/68 (79) 97 06/04/20 19:28 96 20 95 Non-Rebreather 15.0 100 92 20 94 06/04/20 19:28 94 Non-Rebreather 15.0 100 06/04/20 19:03 89 06/04/20 17:39 102 120/62 06/04/20 16:00 15.0 06/04/20 16:00 102 06/04/20 16:00 Non-Rebreather 15.0 06/04/20 16:00 97.7 111 25 120/62 (81) 97 06/04/20 12:00 15.0 06/04/20 12:00 Non-Rebreather 15.0 06/04/20 12:00 135 06/04/20 12:00 97.3 120 26 110/65 (80) 96 06/04/20 11:52 140 123/78 06/04/20 08:00 96.8 116 30 144/60 (88) 96 06/04/20 08:00 116 06/04/20 08:00 15.0 06/04/20 08:00 Non-Rebreather 15.0 06/04/20 07:42 100 Non-Rebreather 15.0 100 06/04/20 04:00 Non-Rebreather 15.0 06/04/20 04:00 15.0 06/04/20 04:00 126 06/04/20 04:00 97.9 140 27 149/98 (115) 98 06/04/20 01:58 132 97 06/04/20 00:00 127 06/04/20 00:00 98.1 119 30 103/76 (85) 100 06/04/20 00:00 Non-Rebreather 15.0 06/04/20 00:00 15.0 ROS: unchanged from my eval of 06/01/20 HEENT: normal ENT inspection RHYTHM: Afib LUNGS: bilateral rhonchi, trach site clean ABDOMEN: normal bowel sounds, non tender, soft, distended EXTREMITIES: trace edema Laboratory Tests Test 06/04/20 03:38 06/04/20 07:41 White Blood Count 19.4 K/UL (4.8-10.8) H Red Blood Count 4.03 M/UL (4.20-5.40) L Hemoglobin 12.8 G/DL (12.0-16.0) Hematocrit 36.1 % (37.0-47.0) L Mean Corpuscular Volume 90 FL (80-99) Mean Corpuscular Hemoglobin 31.7 PG (27.0-31.0) H Mean Corpuscular Hemoglobin Concent 35.4 G/DL (32.0-36.0) Red Cell Distribution Width 11.9 % (11.6-14.8) Platelet Count 98 K/UL (150-450) L Mean Platelet Volume 6.8 FL (6.5-10.1) Neutrophils (%) (Auto) % (45.0-75.0) Lymphocytes (%) (Auto) % (20.0-45.0) Monocytes (%) (Auto) % (1.0-10.0) Eosinophils (%) (Auto) % (0.0-3.0) Basophils (%) (Auto) % (0.0-2.0) Differential Total Cells Counted 100 Neutrophils % (Manual) 89 % (45-75) H Lymphocytes % (Manual) 3 % (20-45) L Monocytes % (Manual) 4 % (1-10) Eosinophils % (Manual) 0 % (0-3) Basophils % (Manual) 0 % (0-2) Band Neutrophils 4 % (0-8) Platelet Estimate Decreased L Platelet Morphology Normal Red Blood Cell Morphology Normal Sodium Level 148 MMOL/L (136-145) H Potassium Level 3.8 MMOL/L (3.5-5.1) Chloride Level 118 MMOL/L (98-107) H Carbon Dioxide Level 19 MMOL/L (21-32) L Anion Gap 11 mmol/L (5-15) Blood Urea Nitrogen 33 mg/dL (7-18) H Creatinine 0.7 MG/DL (0.55-1.30) Estimat Glomerular Filtration Rate > 60 mL/min (>60) Glucose Level 114 MG/DL (74-106) H Uric Acid 4.2 MG/DL (2.6-7.2) Calcium Level 9.0 MG/DL (8.5-10.1) Phosphorus Level 2.3 MG/DL (2.5-4.9) L Magnesium Level 1.9 MG/DL (1.8-2.4) Total Bilirubin 1.0 MG/DL (0.2-1.0) Aspartate Amino Transf (AST/SGOT) 52 U/L (15-37) H Alanine Aminotransferase (ALT/SGPT) 40 U/L (12-78) Alkaline Phosphatase 81 U/L (46-116) C-Reactive Protein, Quantitative 30.9 mg/dL (0.00-0.90) H Pro-B-Type Natriuretic Peptide 6543 pg/mL (0-125) H Total Protein 4.7 G/DL (6.4-8.2) L Albumin 2.2 G/DL (3.4-5.0) L Globulin 2.5 g/dL Albumin/Globulin Ratio 0.9 (1.0-2.7) L Arterial Blood pH 7.359 (7.350-7.450) Arterial Blood Partial Pressure CO2 29.1 mmHg (35.0-45.0) L Arterial Blood Partial Pressure O2 80.3 mmHg (75.0-100.0) Arterial Blood HCO3 16.0 mmol/L (22.0-26.0) *L Arterial Blood Oxygen Saturation 95.1 % (95-100) Arterial Blood Base Excess -8.1 (-2-2) L Beau Test Positive Assessment/Plan Assessment/Plan Sepsis with worsening leukocytosis Shock Respiratory failure HC associated pneumonia Pleural effusions Severe dehydration/hypernatremia/hyperchloremia improved Lactic acidosis Paroxysmal atrial fibrillation Acute myocardial ischemia Ac/chronic diastolic CHF Acute renal failure Cerebrovascular disease with dementia Hypophosphatemia Hypokalemia CRITICAL & GUARDED DNR/DNI IV antimicrobials Respiratory therapy Bipap Hypotonic IVF discont'd Diuresis Advance feedings Serial lactic acid and troponin levels Replace lytes by IV route Diuresis Antibiotics adjusted by ID team Keenan Wright MD Jun 04, 2020 23:18
[2020-06-05] VITALS: BP 97/54
--- NOTE | 2020-06-05 | NUR ---
NURSE NOTES: BP is 97/54, HR is 115. Held Cardizem due to low Bp. Continue to monitor the patient
[2020-06-05] MEDS: Albuterol/Ipratropium 3ml neb HHN SCH ×2 (00:28→08:08)
--- NOTE | 2020-06-05 00:30 | NUR ---
NURSE NOTES: Pt is on bipap prn now. Pt saturating 98-99% tolerating well. Tachypneic at 30 bpm. Continue to monitor the patient
--- NOTE | 2020-06-05 02:00 | NUR ---
NURSE NOTES: Pt was given partial bed bath. changed linen and gown. Tolerated well. O2 saturation maintained at 98-99% via BiPAP.
--- NOTE | 2020-06-05 03:20 | NUR ---
NURSE NOTES: Pt was put back to NRB at 15lpm. Pt saturating 99-100%. Continue to monitor the patient
[2020-06-05 04:00] VITALS: BP 104/51
[2020-06-05 05:19] LABS: HEMATOCRIT 36.8 % (37.0-47.0); HEMOGLOBIN 12.9 G/DL (12.0-16.0); MEAN CORPUSCULAR VOLUME 90 FL (80-99); PLATELET COUNT 95 K/UL (150-450); RED BLOOD COUNT 4.11 M/UL (4.20-5.40); WHITE BLOOD COUNT 16.6 K/UL (4.8-10.8)
[2020-06-05] MEDS: Piperacillin/Tazobactam 3.375 GM in NS 110 ML IVPB SCH (05:26)
[2020-06-05] MEDS: dilTIAZem HCl 60mg tab NG SCH ×2 (05:28→12:00)
[2020-06-05 05:50] LABS: ALANINE AMINOTRANSFERASE 53 U/L (12-78); ALBUMIN 1.7 G/DL (3.4-5.0); ALBUMIN/GLOBULIN RATIO 0.6 (1.0-2.7); ALKALINE PHOSPHATASE 87 U/L (46-116); AMYLASE 25 U/L (25-115); ANION GAP 7 mmol/L (5-15); ASPARTATE AMINO TRANSFERASE 45 U/L (15-37); BILIRUBIN,TOTAL 0.8 MG/DL (0.2-1.0); BLOOD UREA NITROGEN 20 mg/dL (7-18); CALCIUM 8.4 MG/DL (8.5-10.1); CARBON DIOXIDE 24 MMOL/L (21-32); CHLORIDE 113 MMOL/L (98-107); CREATININE 0.6 MG/DL (0.55-1.30); POTASSIUM 3.3 MMOL/L (3.5-5.1); SODIUM 144 MMOL/L (136-145)
--- NOTE | 2020-06-05 06:00 | NUR ---
NURSE NOTES: Pt asleep in bed saturating at 99-100% via NRB at 15lpm. Tachypneic at 30 bpm. Continue to monitor the patient.
--- NOTE | 2020-06-05 07:15 | NUR ---
NURSE NOTES: Received report RN FRANCES patient waiting for COVID result, was negative 06/01,on non rebreather mask,NGT-Osmolite 20 ml/hr HR 85 ,head 30 degrees ,observe aspiration precaution,contact and droplet isolation Platelet 95-low will hold heparin and notify Dr. Wright,observe for bleeding
--- NOTE | 2020-06-05 07:15 | NUR ---
NURSE HAND-OFF REPORT: Important Events on Shift: episdoe of low bp ( AM nurse aware) Patient Status: low bp Diet: osmolite 1.2 at 20cc/hr Pending Orders: n Pending Results/Labs:n Pending MD notification:n Latest Vital Signs: Temperature 97.9 , Pulse 113 , B/P 113 /64 , Respiratory Rate 25 , O2 SAT 97 , Non-Rebreather, O2 Flow Rate 15.0 . Vital Sign Comment: n EKG Rhythm: Atrial Fibrillation with RVR Rhythm change?: N MD Notified?: N - MD Response: Latest Rm Fall Score: 55 Fall Risk: High Risk Safety Measures: Call light Within Reach, Bed Alarm Zone 1, Side Rails Side Rails x3, Bed position Low and Locked. Fall Precautions: Yellow Socks Yellow Gown Door Sign Report given to MANDEEP Allred.
[2020-06-05 08:00] VITALS: BP 91/55
[2020-06-05 08:42] LABS: PHOSPHORUS 2.4 MG/DL (2.5-4.9)
[2020-06-05] MEDS: Heparin 5000 units/ml inj SUBQ SCH (09:00)
[2020-06-05] MEDS ORDERED: Potassium Phosphate 20 MM in NS 275 ML IV SCH (09:30)
--- NOTE | 2020-06-05 09:42 | Pulmonology Progress Note ---
Subjective ROS Limited/Unobtainable: Yes Interval Events: On NRBM; DNR confirmed Constitutional: Reports: no symptoms HEENT: Repors: no symptoms Respiratory: Reports: no symptoms Cardiovascular: Reports: no symptoms Gastrointestinal/Abdominal: Reports: no symptoms Allergies: Coded Allergies: No Known Allergies (Unverified , 06/01/20) Objective Last 24 Hour Vital Signs Date Time Temp Pulse Resp B/P (MAP) Pulse Ox O2 Delivery O2 Flow Rate FiO2 06/05/20 08:50 93 Non-Rebreather 15.0 100 06/05/20 08:18 96 22 93 Non-Rebreather 15.0 100 91 23 92 06/05/20 08:00 97.3 94 24 91/55 (67) 94 06/05/20 07:40 96 06/05/20 05:28 113 113/64 06/05/20 04:00 15.0 06/05/20 04:00 97.9 102 25 104/51 (68) 97 06/05/20 04:00 Non-Rebreather 15.0 06/05/20 03:30 104 06/05/20 00:36 118 31 88 100 06/05/20 00:28 107 20 94 Non-Rebreather 15.0 100 103 20 92 06/05/20 00:00 15.0 06/05/20 00:00 98.2 115 25 97/54 (68) 97 06/05/20 00:00 Non-Rebreather 15.0 06/04/20 23:56 115 97/54 06/04/20 23:30 113 06/04/20 20:00 15.0 06/04/20 20:00 Non-Rebreather 15.0 06/04/20 20:00 97.7 91 25 102/68 (79) 97 06/04/20 19:28 96 20 95 Non-Rebreather 15.0 100 92 20 94 06/04/20 19:28 94 Non-Rebreather 15.0 100 06/04/20 19:03 89 06/04/20 17:39 102 120/62 06/04/20 16:00 15.0 06/04/20 16:00 102 06/04/20 16:00 Non-Rebreather 15.0 06/04/20 16:00 97.7 111 25 120/62 (81) 97 06/04/20 12:00 15.0 06/04/20 12:00 Non-Rebreather 15.0 06/04/20 12:00 135 06/04/20 12:00 97.3 120 26 110/65 (80) 96 06/04/20 11:52 140 123/78 Intake and Output 06/04/20 06/05/20 19:00 07:00 Intake Total 1740.692 ml 747.0 ml Output Total 420 ml 1500 ml Balance 1320.692 ml -753.0 ml Free Water 90 ml 110 ml IV Total 1530.692 ml 397.0 ml Tube Feeding 120 ml 240 ml Output Urine Total 400 ml 1500 ml Stool Total 20 ml General Appearance: no acute distress HEENT: normocephalic Respiratory: chest wall non-tender, lungs clear Cardiovascular: normal peripheral pulses, normal rate Abdomen: normal bowel sounds Microbiology Date/Time Source Procedure Growth Status 06/04/20 12:55 Sputum Gram Stain - Final Resulted 06/04/20 12:55 Sputum Sputum Culture Pending Resulted Laboratory Tests 06/05/20 04:35: White Blood Count 16.6H, Red Blood Count 4.11L, Hemoglobin 12.9, Hematocrit 36.8L, Mean Corpuscular Volume 90, Mean Corpuscular Hemoglobin 31.3H, Mean Corpuscular Hemoglobin Concent 34.9, Red Cell Distribution Width 12.0, Platelet Count 95L, Mean Platelet Volume 8.4, Neutrophils (%) (Auto) , Lymphocytes (%) (Auto) , Monocytes (%) (Auto) , Eosinophils (%) (Auto) , Basophils (%) (Auto) , Differential Total Cells Counted 100, Neutrophils % (Manual) 89H, Lymphocytes % (Manual) 5L, Monocytes % (Manual) 1, Eosinophils % (Manual) 0, Basophils % (Manual) 0, Band Neutrophils 5, Platelet Estimate DecreasedL, Platelet Morphology Normal, Red Blood Cell Morphology Normal, Erythrocyte Sedimentation Rate 77H, Prothrombin Time 11.0, Prothromb Time International Ratio 1.0, Activated Partial Thromboplast Time 32, Sodium Level 144, Potassium Level 3.3L, Chloride Level 113H, Carbon Dioxide Level 24, Anion Gap 7, Blood Urea Nitrogen 20H, Creatinine 0.6, Estimat Glomerular Filtration Rate > 60, Glucose Level 151H , Lactic Acid Level 1.90, Calcium Level 8.4L, Phosphorus Level 2.4L, Magnesium Level 1.7L, Total Bilirubin 0.8, Aspartate Amino Transf (AST/SGOT) 45H, Alanine Aminotransferase (ALT/SGPT) 53, Alkaline Phosphatase 87, C-Reactive Protein, Quantitative 16.6H, Total Protein 4.7L, Albumin 1.7L, Globulin 3.0, Albumin/Globulin Ratio 0.6L, Prealbumin [Pending], Amylase Level 25, Lipase 149 Current Medications Medications (Trade) Dose Ordered Sig/Oksana Route PRN Reason Start Time Stop Time Status Last Admin Dose Admin Acetaminophen (Tylenol) 650 mg Q4H PRN NG fever pain 06/01/20 17:00 07/01/20 16:59 Albuterol/ Ipratropium (Albuterol/ Ipratropium) 3 ml Q6HRT HHN 06/01/20 19:00 06/06/20 18:59 06/05/20 08:08 Aspirin (ASA) 81 mg DAILY NG 06/02/20 09:00 07/17/20 08:59 06/04/20 08:32 Dextrose 1,000 ml @ 50 mls/hr Q20H IV 06/02/20 11:00 07/02/20 10:59 06/05/20 00:16 Diltiazem HCl (Cardizem Tab) 60 mg EVERY 6 HOURS NG 06/04/20 18:00 07/04/20 17:59 06/05/20 05:28 Heparin Sodium (Porcine) (Heparin 5000 units/ml) 5,000 units EVERY 12 HOURS SUBQ 06/01/20 21:00 07/16/20 20:59 06/02/20 21:29 Multivitamins (Multivitamins) 1 tab DAILY NG 06/04/20 23:45 07/04/20 23:54 06/04/20 23:53 Piperacillin Sod/ Tazobactam Sod 3.375 gm/Sodium Chloride 110 ml @ 27.5 mls/hr EVERY 8 HOURS IVPB 06/04/20 14:00 06/09/20 13:59 06/05/20 05:26 Potassium Phosphate 20 mm/ Sodium Chloride 281.6667 ml @ 46.944 m... ONCE IV 06/05/20 09:30 06/05/20 10:30 Vancomycin HCl (Vanco pharmacy to dose) 1 ea DAILY PRN MISC Per rx protocol 06/01/20 16:30 07/01/20 16:29 Vancomycin HCl 750 mg/Sodium Chloride 275 ml @ 183.333 mls/hr Q24H IVPB 06/04/20 12:00 06/09/20 11:59 06/04/20 11:52 Zinc Sulfate (Zinc Sulfate) 220 mg DAILY ORAL 06/05/20 23:55 06/15/20 23:54 Assessment/Plan Assessment/Plan IMPRESSION: 1. Bilateral pneumonia. 2. Respiratory failure. 3. Off BiPAP 4. Altered mental status. 5. Dementia. 6. Limited code. DISCUSSION: Continue NRBM. Reviewed ABg WBC noted; now 16K Broad-spectrum antibiotics. Await repeat COVID-19 testing. Irvin Simeon Omar Syed MD Jun 05, 2020 09:42
[2020-06-05] MEDS: Aspirin Baby 81mg NG SCH (10:10)
--- NOTE | 2020-06-05 10:14 | NUR ---
FIELD MARKETING ASSOCIATEFIELD MARKETING ASSOCIATE SI: RESP FAILURE, PNA T. 97.3 HR 94 RR 24 B/P 91/55 NRM FIO2 100% O2 SAT @ 92% WBC 16.6 K 3.3 BUN 20 AST 45 IS: IVF D5 @ 50ML/HR VANCO IV ZOSYN IV K-PHOS IV STEP DOWN STATUS
--- NOTE | 2020-06-05 10:16 | NUR ---
[facility] NOTES CLINICALS REVIEWED AND FAXED.
--- NOTE | 2020-06-05 10:34 | Nephrology Progress Note ---
Assessment/Plan Problem List: (1) Renal failure (2) Hypernatremia (3) Hypoxia (4) Hypotension (5) Severe sepsis (6) Elevated troponin (7) Bilateral pneumonia Assessment Renal failure Severe dehydration Sepsis with shock Pneumonia Electrolyte imbalances History of CVA with dementia Respiratory failure Plan June 05: Renal parameters improved. Low magnesium and low potassium replaced. IV fluids discontinued. Continue per consultants. June 04: Renal parameters improved. Down on IV fluid to 50 cc an hour. Continue to monitor electrolytes. Continue per consultants. Will cut down on IV fluid to 75 cc an hour Potassium and phosphorus IV supplement Continue nonrebreather mask/BiPAP as needed Albumin 5% 500 cc IV bolus as needed Monitor renal parameters electrolytes Antibiotics pulmonary support Discussed with RN Subjective ROS Limited/Unobtainable: Yes Objective Objective Last 24 Hour Vital Signs Date Time Temp Pulse Resp B/P (MAP) Pulse Ox O2 Delivery O2 Flow Rate FiO2 06/05/20 08:50 93 Non-Rebreather 15.0 100 06/05/20 08:18 96 22 93 Non-Rebreather 15.0 100 91 23 92 06/05/20 08:00 97.3 94 24 91/55 (67) 94 06/05/20 07:40 96 06/05/20 05:28 113 113/64 06/05/20 04:00 15.0 06/05/20 04:00 97.9 102 25 104/51 (68) 97 06/05/20 04:00 Non-Rebreather 15.0 06/05/20 03:30 104 06/05/20 00:36 118 31 88 100 06/05/20 00:28 107 20 94 Non-Rebreather 15.0 100 103 20 92 06/05/20 00:00 15.0 06/05/20 00:00 98.2 115 25 97/54 (68) 97 06/05/20 00:00 Non-Rebreather 15.0 06/04/20 23:56 115 97/54 06/04/20 23:30 113 06/04/20 20:00 15.0 06/04/20 20:00 Non-Rebreather 15.0 06/04/20 20:00 97.7 91 25 102/68 (79) 97 06/04/20 19:28 96 20 95 Non-Rebreather 15.0 100 92 20 94 06/04/20 19:28 94 Non-Rebreather 15.0 100 06/04/20 19:03 89 06/04/20 17:39 102 120/62 06/04/20 16:00 15.0 06/04/20 16:00 102 06/04/20 16:00 Non-Rebreather 15.0 06/04/20 16:00 97.7 111 25 120/62 (81) 97 06/04/20 12:00 15.0 06/04/20 12:00 Non-Rebreather 15.0 06/04/20 12:00 135 06/04/20 12:00 97.3 120 26 110/65 (80) 96 06/04/20 11:52 140 123/78 Intake and Output 06/04/20 06/05/20 19:00 07:00 Intake Total 1740.692 ml 747.0 ml Output Total 420 ml 1500 ml Balance 1320.692 ml -753.0 ml Free Water 90 ml 110 ml IV Total 1530.692 ml 397.0 ml Tube Feeding 120 ml 240 ml Output Urine Total 400 ml 1500 ml Stool Total 20 ml Current Medications Medications (Trade) Dose Ordered Sig/Oksana Route PRN Reason Start Time Stop Time Status Last Admin Dose Admin Acetaminophen (Tylenol) 650 mg Q4H PRN NG fever pain 06/01/20 17:00 07/01/20 16:59 Albuterol/ Ipratropium (Albuterol/ Ipratropium) 3 ml Q6HRT HHN 06/01/20 19:00 06/06/20 18:59 06/05/20 08:08 Aspirin (ASA) 81 mg DAILY NG 06/02/20 09:00 07/17/20 08:59 06/05/20 10:10 Dextrose 1,000 ml @ 50 mls/hr Q20H IV 06/02/20 11:00 07/02/20 10:59 06/05/20 00:16 Diltiazem HCl (Cardizem Tab) 60 mg EVERY 6 HOURS NG 06/04/20 18:00 07/04/20 17:59 06/05/20 05:28 Heparin Sodium (Porcine) (Heparin 5000 units/ml) 5,000 units EVERY 12 HOURS SUBQ 06/01/20 21:00 07/16/20 20:59 06/02/20 21:29 Multivitamins (Multivitamins) 1 tab DAILY NG 06/04/20 23:45 07/04/20 23:54 06/05/20 10:11 Piperacillin Sod/ Tazobactam Sod 3.375 gm/Sodium Chloride 110 ml @ 27.5 mls/hr EVERY 8 HOURS IVPB 06/04/20 14:00 06/09/20 13:59 06/05/20 05:26 Vancomycin HCl (Vanco pharmacy to dose) 1 ea DAILY PRN MISC Per rx protocol 06/01/20 16:30 07/01/20 16:29 Vancomycin HCl 750 mg/Sodium Chloride 275 ml @ 183.333 mls/hr Q24H IVPB 06/04/20 12:00 06/09/20 11:59 06/04/20 11:52 Zinc Sulfate (Zinc Sulfate) 220 mg DAILY ORAL 06/05/20 23:55 06/15/20 23:54 Laboratory Tests 06/05/20 04:35: White Blood Count 16.6H, Red Blood Count 4.11L, Hemoglobin 12.9, Hematocrit 36.8L, Mean Corpuscular Volume 90, Mean Corpuscular Hemoglobin 31.3H, Mean Corpuscular Hemoglobin Concent 34.9, Red Cell Distribution Width 12.0, Platelet Count 95L, Mean Platelet Volume 8.4, Neutrophils (%) (Auto) , Lymphocytes (%) (Auto) , Monocytes (%) (Auto) , Eosinophils (%) (Auto) , Basophils (%) (Auto) , Differential Total Cells Counted 100, Neutrophils % (Manual) 89H, Lymphocytes % (Manual) 5L, Monocytes % (Manual) 1, Eosinophils % (Manual) 0, Basophils % (Manual) 0, Band Neutrophils 5, Platelet Estimate DecreasedL, Platelet Morphology Normal, Red Blood Cell Morphology Normal, Erythrocyte Sedimentation Rate 77H, Prothrombin Time 11.0, Prothromb Time International Ratio 1.0, Activated Partial Thromboplast Time 32, Sodium Level 144, Potassium Level 3.3L, Chloride Level 113H, Carbon Dioxide Level 24, Anion Gap 7, Blood Urea Nitrogen 20H, Creatinine 0.6, Estimat Glomerular Filtration Rate > 60, Glucose Level 151H , Lactic Acid Level 1.90, Calcium Level 8.4L, Phosphorus Level 2.4L, Magnesium Level 1.7L, Total Bilirubin 0.8, Aspartate Amino Transf (AST/SGOT) 45H, Alanine Aminotransferase (ALT/SGPT) 53, Alkaline Phosphatase 87, C-Reactive Protein, Quantitative 16.6H, Total Protein 4.7L, Albumin 1.7L, Globulin 3.0, Albumin/Globulin Ratio 0.6L, Prealbumin [Pending], Amylase Level 25, Lipase 149 Height (Feet): 5 Height (Inches): 2.00 Weight (Pounds): 120 General Appearance: mild distress EENT: other - On nonrebreather mask Cardiovascular: tachycardia Respiratory/Chest: decreased breath sounds Abdomen: distended Asher Guerra MD Jun 05, 2020 10:34
--- NOTE | 2020-06-05 10:55 | Infectious Diseases Prog Note ---
Assessment/Plan Assessment/Plan antibiotics : vancomycin iv, zosyn A 1. pneumonia COVID 19 negative 2. leucocytosis improved 3. dementia 4. thrombocytopenia 5. hypertension P 1. continue iv vancomycin, zosyn 2. will follow up culture Subjective ROS Limited/Unobtainable: Yes Allergies: Coded Allergies: No Known Allergies (Unverified , 06/01/20) Objective Last 24 Hour Vital Signs Date Time Temp Pulse Resp B/P (MAP) Pulse Ox O2 Delivery O2 Flow Rate FiO2 06/05/20 08:50 93 Non-Rebreather 15.0 100 06/05/20 08:18 96 22 93 Non-Rebreather 15.0 100 91 23 92 06/05/20 08:00 97.3 94 24 91/55 (67) 94 06/05/20 07:40 96 06/05/20 05:28 113 113/64 06/05/20 04:00 15.0 06/05/20 04:00 97.9 102 25 104/51 (68) 97 06/05/20 04:00 Non-Rebreather 15.0 06/05/20 03:30 104 06/05/20 00:36 118 31 88 100 06/05/20 00:28 107 20 94 Non-Rebreather 15.0 100 103 20 92 06/05/20 00:00 15.0 06/05/20 00:00 98.2 115 25 97/54 (68) 97 06/05/20 00:00 Non-Rebreather 15.0 06/04/20 23:56 115 97/54 06/04/20 23:30 113 06/04/20 20:00 15.0 06/04/20 20:00 Non-Rebreather 15.0 06/04/20 20:00 97.7 91 25 102/68 (79) 97 06/04/20 19:28 96 20 95 Non-Rebreather 15.0 100 92 20 94 06/04/20 19:28 94 Non-Rebreather 15.0 100 06/04/20 19:03 89 06/04/20 17:39 102 120/62 06/04/20 16:00 15.0 06/04/20 16:00 102 06/04/20 16:00 Non-Rebreather 15.0 06/04/20 16:00 97.7 111 25 120/62 (81) 97 06/04/20 12:00 15.0 06/04/20 12:00 Non-Rebreather 15.0 06/04/20 12:00 135 06/04/20 12:00 97.3 120 26 110/65 (80) 96 06/04/20 11:52 140 123/78 Height (Feet): 5 Height (Inches): 2.00 Weight (Pounds): 120 Microbiology Date/Time Source Procedure Growth Status 06/04/20 12:55 Sputum Gram Stain - Final Resulted 06/04/20 12:55 Sputum Sputum Culture Pending Resulted Laboratory Tests Test 06/05/20 04:35 White Blood Count 16.6 K/UL (4.8-10.8) H Red Blood Count 4.11 M/UL (4.20-5.40) L Hemoglobin 12.9 G/DL (12.0-16.0) Hematocrit 36.8 % (37.0-47.0) L Mean Corpuscular Volume 90 FL (80-99) Mean Corpuscular Hemoglobin 31.3 PG (27.0-31.0) H Mean Corpuscular Hemoglobin Concent 34.9 G/DL (32.0-36.0) Red Cell Distribution Width 12.0 % (11.6-14.8) Platelet Count 95 K/UL (150-450) L Mean Platelet Volume 8.4 FL (6.5-10.1) Neutrophils (%) (Auto) % (45.0-75.0) Lymphocytes (%) (Auto) % (20.0-45.0) Monocytes (%) (Auto) % (1.0-10.0) Eosinophils (%) (Auto) % (0.0-3.0) Basophils (%) (Auto) % (0.0-2.0) Differential Total Cells Counted 100 Neutrophils % (Manual) 89 % (45-75) H Lymphocytes % (Manual) 5 % (20-45) L Monocytes % (Manual) 1 % (1-10) Eosinophils % (Manual) 0 % (0-3) Basophils % (Manual) 0 % (0-2) Band Neutrophils 5 % (0-8) Platelet Estimate Decreased L Platelet Morphology Normal Red Blood Cell Morphology Normal Erythrocyte Sedimentation Rate 77 MM/HR (0-30) H Prothrombin Time 11.0 SEC (9.30-11.50) Prothromb Time International Ratio 1.0 (0.9-1.1) Activated Partial Thromboplast Time 32 SEC (23-33) Sodium Level 144 MMOL/L (136-145) Potassium Level 3.3 MMOL/L (3.5-5.1) L Chloride Level 113 MMOL/L (98-107) H Carbon Dioxide Level 24 MMOL/L (21-32) Anion Gap 7 mmol/L (5-15) Blood Urea Nitrogen 20 mg/dL (7-18) H Creatinine 0.6 MG/DL (0.55-1.30) Estimat Glomerular Filtration Rate > 60 mL/min (>60) Glucose Level 151 MG/DL (74-106) H Lactic Acid Level 1.90 mmol/L (0.4-2.0) Calcium Level 8.4 MG/DL (8.5-10.1) L Phosphorus Level 2.4 MG/DL (2.5-4.9) L Magnesium Level 1.7 MG/DL (1.8-2.4) L Total Bilirubin 0.8 MG/DL (0.2-1.0) Aspartate Amino Transf (AST/SGOT) 45 U/L (15-37) H Alanine Aminotransferase (ALT/SGPT) 53 U/L (12-78) Alkaline Phosphatase 87 U/L (46-116) C-Reactive Protein, Quantitative 16.6 mg/dL (0.00-0.90) H Total Protein 4.7 G/DL (6.4-8.2) L Albumin 1.7 G/DL (3.4-5.0) L Globulin 3.0 g/dL Albumin/Globulin Ratio 0.6 (1.0-2.7) L Prealbumin Pending Amylase Level 25 U/L (25-115) Lipase 149 U/L (73-393) Current Medications Medications (Trade) Dose Ordered Sig/Oksana Route PRN Reason Start Time Stop Time Status Last Admin Dose Admin Acetaminophen (Tylenol) 650 mg Q4H PRN NG fever pain 06/01/20 17:00 07/01/20 16:59 Albuterol/ Ipratropium (Albuterol/ Ipratropium) 3 ml Q6HRT HHN 06/01/20 19:00 06/06/20 18:59 06/05/20 08:08 Aspirin (ASA) 81 mg DAILY NG 06/02/20 09:00 07/17/20 08:59 06/05/20 10:10 Diltiazem HCl (Cardizem Tab) 60 mg EVERY 6 HOURS NG 06/04/20 18:00 07/04/20 17:59 06/05/20 05:28 Heparin Sodium (Porcine) (Heparin 5000 units/ml) 5,000 units EVERY 12 HOURS SUBQ 06/01/20 21:00 07/16/20 20:59 06/02/20 21:29 Magnesium Sulfate 100 ml @ 100 mls/hr Q1H IVPB 06/05/20 11:00 06/05/20 12:59 Multivitamins (Multivitamins) 1 tab DAILY NG 06/04/20 23:45 07/04/20 23:54 06/05/20 10:11 Piperacillin Sod/ Tazobactam Sod 3.375 gm/Sodium Chloride 110 ml @ 27.5 mls/hr EVERY 8 HOURS IVPB 06/04/20 14:00 06/09/20 13:59 06/05/20 05:26 Vancomycin HCl (Vanco pharmacy to dose) 1 ea DAILY PRN MISC Per rx protocol 06/01/20 16:30 07/01/20 16:29 Vancomycin HCl 750 mg/Sodium Chloride 275 ml @ 183.333 mls/hr Q24H IVPB 06/04/20 12:00 06/09/20 11:59 06/04/20 11:52 Zinc Sulfate (Zinc Sulfate) 220 mg DAILY ORAL 06/05/20 23:55 06/15/20 23:54 Enrique Abreu MD Jun 05, 2020 10:55
[2020-06-05 11:40] VITALS: BP 76/56
--- NOTE | 2020-06-05 11:50 | NUR ---
NURSE NOTES: 1150 Patient condition changed- BP low-76/56 O2 saturation 78 %,i was called to see patient,when i arrived room,respiratory therapist was also there,patient agonal breathing,stayed with patient,made comfortable,monitored 1202 Asystole -see rhythm strip 1207 Pupils fixed not reactive to light,non responsive to sternal rub,no BP No ,pulse appreciated femoral/jugular Pronounce ,patient DNR/DNI [address] Keenan Wright patient ,instructed me to call family 1310 Rahat King RN who speaks [place] called family per Dr. Ojeda instructions
[2020-06-05] MEDS: Vancomycin 750mg/NS 275ml IVPB SCH ×2 (12:00)
--- NOTE | 2020-06-05 12:07 | NUR ---
PRONOUNCEMENT: No Code. Called to pronounce patient. Absence of spontaneous respirations, no cardiac or breath sounds on auscultation. Pupils fixed and dilated. No carotid pulse or chest movement. Patient at 1207. DR Keenan Wright notified PER . Family was notified at .Manisha Cano/Estevan Cano Sr.,I spoke to son Estevan Cano JrMadeleine-he interpret in Thai,per Estevan Cano Jr. ,his parents Have power patent attorney,RN Rahat King RN also notified Wilder Cano-nephew
--- NOTE | 2020-06-05 12:41 | NUR ---
NURSE NOTES: Called Family member, Wilder Cano, notified patient . Per family member [facility] tele : [phone], nadme of person at [facility] Ray. Called Ray, no answer, left message.
--- NOTE | 2020-06-05 12:51 | NUR ---
NURSE NOTES: Wilder Cano, family member called, provide another number for [facility] tele: [phone], will call to follow up. per Wilder, will call mortuary.
--- NOTE | 2020-06-05 13:00 | NUR ---
NURSE NOTES: Spoke with [facility] tele : [phone].
--- NOTE | 2020-06-05 13:20 | NUR ---
NURSE NOTES: Called [facility] and [facility] [employer].
[2020-06-05] MEDS ORDERED: Tubing IV Secondary IV ONE ×3 (13:29→15:59)
[2020-06-05] MEDS ORDERED: NS 275ml ONE (13:31)
--- NOTE | 2020-06-05 15:40 | NUR ---
NURSE NOTES: nephew of patient -Estevan Cano Jr. spoke to me in first floor-his parents Estevan Cano Sr. and mother Manisha- are both power assistant district attorney of patient,his parents authorize release of body to [facility] [address]- Picked up by [facility]-record of and release in chart
--- NOTE | 2020-06-05 17:20 | NUR ---
INSURANCE CLINICALS/REVIEW FAXED TO [facility] - CM: Mago morrison [id number] Fax Clinicals: Scan - Fax Clinicals: [phone]
--- NOTE | 2020-06-05 22:12 | Cardiology Progress Note ---
Subjective DATE OF SERVICE: Jun 05, 2020 Remains tachypneic and hypoxic, on bipap. Now with episodes of hypotension. Hypotonic IVF being admin for severe free water deficit. Still has multiple, severe electrolyte abnormalities. Monitor: Paroxysmal atrial fibrillation with RVR - noq better controlled Advanced directives and Polst reaffirmed with responsible parties on admit - DNR/DNI and no m[facility]p artificial nutrition CXR (06/04) reveals worsening infiltrates and pl. effusions Objective Last 24 Hour Vital Signs Date Time Temp Pulse Resp B/P (MAP) Pulse Ox O2 Delivery O2 Flow Rate FiO2 06/05/20 12:00 40 06/05/20 11:40 96.0 60 6 76/56 (63) 78 06/05/20 11:40 Bi-pap 06/05/20 08:50 93 Non-Rebreather 15.0 100 06/05/20 08:18 96 22 93 Non-Rebreather 15.0 100 91 23 92 06/05/20 08:00 97.3 94 24 91/55 (67) 94 06/05/20 08:00 Bi-pap 06/05/20 08:00 40 06/05/20 07:40 96 06/05/20 05:28 113 113/64 06/05/20 04:00 15.0 06/05/20 04:00 97.9 102 25 104/51 (68) 97 06/05/20 04:00 Non-Rebreather 15.0 06/05/20 03:30 104 06/05/20 00:36 118 31 88 100 06/05/20 00:28 107 20 94 Non-Rebreather 15.0 100 103 20 92 06/05/20 00:00 15.0 06/05/20 00:00 98.2 115 25 97/54 (68) 97 06/05/20 00:00 Non-Rebreather 15.0 06/04/20 23:56 115 97/54 06/04/20 23:30 113 ROS: unchanged from my eval of 06/01/20 HEENT: normal ENT inspection RHYTHM: Afib LUNGS: bilateral rhonchi, trach site clean ABDOMEN: normal bowel sounds, non tender, soft, distended EXTREMITIES: trace edema Laboratory Tests Test 06/05/20 04:35 White Blood Count 16.6 K/UL (4.8-10.8) H Red Blood Count 4.11 M/UL (4.20-5.40) L Hemoglobin 12.9 G/DL (12.0-16.0) Hematocrit 36.8 % (37.0-47.0) L Mean Corpuscular Volume 90 FL (80-99) Mean Corpuscular Hemoglobin 31.3 PG (27.0-31.0) H Mean Corpuscular Hemoglobin Concent 34.9 G/DL (32.0-36.0) Red Cell Distribution Width 12.0 % (11.6-14.8) Platelet Count 95 K/UL (150-450) L Mean Platelet Volume 8.4 FL (6.5-10.1) Neutrophils (%) (Auto) % (45.0-75.0) Lymphocytes (%) (Auto) % (20.0-45.0) Monocytes (%) (Auto) % (1.0-10.0) Eosinophils (%) (Auto) % (0.0-3.0) Basophils (%) (Auto) % (0.0-2.0) Differential Total Cells Counted 100 Neutrophils % (Manual) 89 % (45-75) H Lymphocytes % (Manual) 5 % (20-45) L Monocytes % (Manual) 1 % (1-10) Eosinophils % (Manual) 0 % (0-3) Basophils % (Manual) 0 % (0-2) Band Neutrophils 5 % (0-8) Platelet Estimate Decreased L Platelet Morphology Normal Red Blood Cell Morphology Normal Erythrocyte Sedimentation Rate 77 MM/HR (0-30) H Prothrombin Time 11.0 SEC (9.30-11.50) Prothromb Time International Ratio 1.0 (0.9-1.1) Activated Partial Thromboplast Time 32 SEC (23-33) Sodium Level 144 MMOL/L (136-145) Potassium Level 3.3 MMOL/L (3.5-5.1) L Chloride Level 113 MMOL/L (98-107) H Carbon Dioxide Level 24 MMOL/L (21-32) Anion Gap 7 mmol/L (5-15) Blood Urea Nitrogen 20 mg/dL (7-18) H Creatinine 0.6 MG/DL (0.55-1.30) Estimat Glomerular Filtration Rate > 60 mL/min (>60) Glucose Level 151 MG/DL (74-106) H Lactic Acid Level 1.90 mmol/L (0.4-2.0) Calcium Level 8.4 MG/DL (8.5-10.1) L Phosphorus Level 2.4 MG/DL (2.5-4.9) L Magnesium Level 1.7 MG/DL (1.8-2.4) L Total Bilirubin 0.8 MG/DL (0.2-1.0) Aspartate Amino Transf (AST/SGOT) 45 U/L (15-37) H Alanine Aminotransferase (ALT/SGPT) 53 U/L (12-78) Alkaline Phosphatase 87 U/L (46-116) C-Reactive Protein, Quantitative 16.6 mg/dL (0.00-0.90) H Total Protein 4.7 G/DL (6.4-8.2) L Albumin 1.7 G/DL (3.4-5.0) L Globulin 3.0 g/dL Albumin/Globulin Ratio 0.6 (1.0-2.7) L Prealbumin Pending Amylase Level 25 U/L (25-115) Lipase 149 U/L (73-393) Microbiology Date/Time Source Procedure Growth Status 06/04/20 12:55 Sputum Gram Stain - Final Resulted 06/04/20 12:55 Sputum Sputum Culture Pending Resulted Assessment/Plan Assessment/Plan Sepsis with worsening leukocytosis Shock Respiratory failure HC associated pneumonia Pleural effusions Severe dehydration/hypernatremia/hyperchloremia improved Lactic acidosis Paroxysmal atrial fibrillation Acute myocardial ischemia Ac/chronic diastolic CHF Acute renal failure Cerebrovascular disease with dementia Hypophosphatemia Hypokalemia CRITICAL & GUARDED DNR/DNI IV antimicrobials Respiratory therapy Bipap Diuresis as needed Advance feedings Serial lactic acid and troponin levels Replace lytes by IV route Antibiotics adjusted by ID team Keenan Wright MD Jun 05, 2020 22:12
--- NOTE | 2020-06-05 23:13 | Surgery Progress Note ---
Surgery Progress Note Subjective Additional Comments late entry patient ill appearing and declining local wound care provided since at time of note patient has . Objective Last 24 Hour Vital Signs Date Time Temp Pulse Resp B/P (MAP) Pulse Ox O2 Delivery O2 Flow Rate FiO2 06/05/20 12:00 40 06/05/20 11:40 96.0 60 6 76/56 (63) 78 06/05/20 11:40 Bi-pap 06/05/20 08:50 93 Non-Rebreather 15.0 100 06/05/20 08:18 96 22 93 Non-Rebreather 15.0 100 91 23 92 06/05/20 08:00 97.3 94 24 91/55 (67) 94 06/05/20 08:00 Bi-pap 06/05/20 08:00 40 06/05/20 07:40 96 06/05/20 05:28 113 113/64 06/05/20 04:00 15.0 06/05/20 04:00 97.9 102 25 104/51 (68) 97 06/05/20 04:00 Non-Rebreather 15.0 06/05/20 03:30 104 06/05/20 00:36 118 31 88 100 06/05/20 00:28 107 20 94 Non-Rebreather 15.0 100 103 20 92 06/05/20 00:00 15.0 06/05/20 00:00 98.2 115 25 97/54 (68) 97 06/05/20 00:00 Non-Rebreather 15.0 06/04/20 23:56 115 97/54 06/04/20 23:30 113 I&O Intake and Output 06/04/20 06/05/20 19:00 07:00 Intake Total 1740.692 ml 747.0 ml Output Total 420 ml 1500 ml Balance 1320.692 ml -753.0 ml Free Water 90 ml 110 ml IV Total 1530.692 ml 397.0 ml Tube Feeding 120 ml 240 ml Output Urine Total 400 ml 1500 ml Stool Total 20 ml Dressing: saturated Wound: other Cardiovascular: RSR Respiratory: decreased breath sounds Abdomen: soft, present bowel sounds Extremities: other Laboratory Tests Test 06/05/20 04:35 White Blood Count 16.6 K/UL (4.8-10.8) H Red Blood Count 4.11 M/UL (4.20-5.40) L Hemoglobin 12.9 G/DL (12.0-16.0) Hematocrit 36.8 % (37.0-47.0) L Mean Corpuscular Volume 90 FL (80-99) Mean Corpuscular Hemoglobin 31.3 PG (27.0-31.0) H Mean Corpuscular Hemoglobin Concent 34.9 G/DL (32.0-36.0) Red Cell Distribution Width 12.0 % (11.6-14.8) Platelet Count 95 K/UL (150-450) L Mean Platelet Volume 8.4 FL (6.5-10.1) Neutrophils (%) (Auto) % (45.0-75.0) Lymphocytes (%) (Auto) % (20.0-45.0) Monocytes (%) (Auto) % (1.0-10.0) Eosinophils (%) (Auto) % (0.0-3.0) Basophils (%) (Auto) % (0.0-2.0) Differential Total Cells Counted 100 Neutrophils % (Manual) 89 % (45-75) H Lymphocytes % (Manual) 5 % (20-45) L Monocytes % (Manual) 1 % (1-10) Eosinophils % (Manual) 0 % (0-3) Basophils % (Manual) 0 % (0-2) Band Neutrophils 5 % (0-8) Platelet Estimate Decreased L Platelet Morphology Normal Red Blood Cell Morphology Normal Erythrocyte Sedimentation Rate 77 MM/HR (0-30) H Prothrombin Time 11.0 SEC (9.30-11.50) Prothromb Time International Ratio 1.0 (0.9-1.1) Activated Partial Thromboplast Time 32 SEC (23-33) Sodium Level 144 MMOL/L (136-145) Potassium Level 3.3 MMOL/L (3.5-5.1) L Chloride Level 113 MMOL/L (98-107) H Carbon Dioxide Level 24 MMOL/L (21-32) Anion Gap 7 mmol/L (5-15) Blood Urea Nitrogen 20 mg/dL (7-18) H Creatinine 0.6 MG/DL (0.55-1.30) Estimat Glomerular Filtration Rate > 60 mL/min (>60) Glucose Level 151 MG/DL (74-106) H Lactic Acid Level 1.90 mmol/L (0.4-2.0) Calcium Level 8.4 MG/DL (8.5-10.1) L Phosphorus Level 2.4 MG/DL (2.5-4.9) L Magnesium Level 1.7 MG/DL (1.8-2.4) L Total Bilirubin 0.8 MG/DL (0.2-1.0) Aspartate Amino Transf (AST/SGOT) 45 U/L (15-37) H Alanine Aminotransferase (ALT/SGPT) 53 U/L (12-78) Alkaline Phosphatase 87 U/L (46-116) C-Reactive Protein, Quantitative 16.6 mg/dL (0.00-0.90) H Total Protein 4.7 G/DL (6.4-8.2) L Albumin 1.7 G/DL (3.4-5.0) L Globulin 3.0 g/dL Albumin/Globulin Ratio 0.6 (1.0-2.7) L Prealbumin Pending Amylase Level 25 U/L (25-115) Lipase 149 U/L (73-393) Plan Problems: (1) Malnutrition (2) Decubitus skin ulcer Assessment & Plan: Pt presented on admission with multiple Pressure injuries. Non-Blanchable erythema without induration R thoracic. Sacral DTPI(L)5.5cmx (W)8cm.Base of wound is maroon with an area of induration at sacrococcygeal area.Marginal erythema along borders. Scrotum is erythematous. R heel is maroon and boggy (L)5cm x (W)5cm. L heel is boggy with non-blanchable erythema(L)4.2cm x (W)4cm. Tx.Plan: Apply Cavilon skin Barrier R thoracic.Cover with Optifoam drsg . Change every 7 days and prn. Apply Moisture Barrier Paste to Sacrum. Cover with Optifoam drsg. Change every 3 days and prn. Apply Moisture Barrier Paste to Scrotum with each incontinence care. Apply Cavilon Skin Barrier to both heels. Cover each heel with Optifoam dr sg.Change every 7 days and prn. Reposition at least every 2 hours or as tolerated. Off-load heels with pillow. APM/GABRIELLA Mattress overlay. (3) Hypernatremia (4) Renal failure (5) COVID-19 ruled out by laboratory testing (6) Hypoxia (7) Hypotension (8) Severe sepsis Assessment & Plan: 84M with worsening leukocytosis, lactic acidosis, anemia, malnutrition, cxr noted, exam as above wounds unlikely etiology. no abscess. no drainage. cont abx nutritional optimization labs ordered will follow with recs thank you (9) Elevated troponin (10) Bilateral pneumonia Martin Luther Jun 05, 2020 23:13
[2020-06-05] MEDS ORDERED: Zinc Sulfate 220mg ORAL SCH (23:55)
--- NOTE | 2020-06-06 11:00 | NUR ---
NURSE NOTES: Late entry 06/05/2020 1522 -[facility] called-Elisabet Alvarez to release body ,case no. [id number] Post Mortem care done,removed NGT-intact,Jaime catheter-intact,rectal tube-intact
--- NOTE | 2020-06-06 13:56 | Discharge Summary ---
Discharge Summary Discharge Summary _ SUMMARY DATE OF ADMISSION: 06/01/2020 DATE OF EXPIRATION: 06/05/2020 REASON FOR ADMISSION: 84 years old female, resident of [facility], with past medical history of hypertension, hypercholesterolemia, osteoarthritis, advanced dementia, DNR status with comfort measures only was sent for evaluation. Patient was unresponsive for 20 minutes before paramedics were called paramedics found patient to be hypoxic and hypotensive in the field patient received fluid bolus upon presentation to ED she was significantly hypotensive with a blood pressure 60/31 and tachypneic with respiratory rate 25 patient required was also hypoxic and required 100% nonrebreather mask saturating only 90%. Laboratory work-up revealed no leukocytosis hemoglobin 16.6 hematocrit 49.5 platelet counts 273. Sodium 161, potassium 3.2, chloride 121. BUN 82, creatinine 1.9. Lactic acid 5.1. Glucose 128. Total bilirubin 2.6 direct bilirubin 0.9. AST 43 ALT 67. Troponin 0.1 proBNP 723. Albumin 3.2 EKG revealed sinus rhythm with runs of premature atrial contraction no acute ischemic changes. Rapid COVID-19 was negative. Chest x-ray demonstrated bilateral left greater than right infiltrates likely pneumonia. ABG 100% nonrebreather mask was satisfactory. Patient admitted with severe sepsis, bilateral pneumonia, elevated troponin, renal failure,, hypoxia hypotension, hypernatremia, severe dehydration patient pancultured received fluids aspirin started on empiric antibiotic potassium was replaced patient subsequently admitted to stepdown unit for further management CONSULTANTS: pulmonary Dr. Roth ID specialist Dr. Aberu road cutter Dr. Guerra [facility] COURSE: [] Patient made to stepdown unit. Patient was on IV fluids and broad-spectrum antibiotics. Blood cultures were negative. Sputum culture revealed gram- negative bacilli and yeast antibiotic regimen optimized as per ID specialist recommendation. Hemodynamic status was closely monitored with goal to keep mean arterial blood pressure above 65. Blood pressure initially responded to fluids. Patient was 100% nonrebreather mask and follow-up with ABG and chest x- ray pulmonary toilet provided. Patient tried sometimes on the BiPAP she still remained tachypneic and hypoxic with episode of hypotension. IV fluids continued. Patient developed paroxysmal atrial fibrillation with RVR later better controlled. Advanced directive were reviewed patient is a DNR/DNI status and no long-term artificial nutrition. Patient follow-up with a chest x-ray showed worsening infiltrates. Serial troponins were closely monitor remain elevated second troponin 0 0.221 the next last troponin 0 0.141. EKG revealed no acute ischemic changes. Echocardiogram demonstrated preserved ejection fraction of 55% with no evidence of left ventricular hypertrophy. No evidence of wall motion abnormality. Moderate mitral regurgitation. Right ventricular systolic pressure of 49 consistent with moderate pulmonary hypertension volumes were closely monitored. Patient spot diuresis needed. Leukocytosis worsening. BUN from 82 down to 20 and creatinine from 1.9 down to 0.6. Acute kidney injury acute renal failure resolved which was likely due to severe dehydration. Albumin provided as needed unfortunately patient patient condition continued to deteriorate leukocytosis worsen blood pressure was dropping despite fluids patient condition remains guarded patient subsequently pronounced at 1207 on 1020. Because cardiopulmonary arrest need close of this cardiopulmonary arrest Wound care for multiple pressure injury present admission provided per surgeon recommendation. FINAL DIAGNOSES: Sepsis Shock Acute hypoxemic respiratory failure ( requiring 100% NRM and BiPAP) Healthcare associated pneumonia COVID-19- ruled out by laboratory testing Severe dehydration Acute myocardial ischemia Acute renal failure Hypernatremia Hyperchloremia Lactic acidosis Paroxysmal atrial fibrillation Pleural effusion Acute on chronic diastolic congestive failure Cerebrovascular disease with dementia Electrolyte abnormalities: hypokalemia, hypophosphatemia Malnutrition Multiple pressure injury, present on admission I have been assigned to dictate discharge summary for this account. I was not involved in the patient's management. Sonja Burnett NP Jun 06, 2020 13:56
== END 2020-06-05 16:00 | disposition expired | DRG 871 ==
LOC: EDBD 14:18 → EMR 16:07 → 2W 16:15 → EDBEDREQ 17:04 → 2W 23:11
PROC: 5A09457 Assistance with Respiratory Ventilation, 24-96 Consecutive Hours, Continuous Positive Airway Pressure (ICD-10-PCS; principal; 2020-06-01)
DX: A41.9 Sepsis, unspecified organism (principal); R65.21 Severe sepsis with septic shock; J18.9 Pneumonia, unspecified organism; J96.01 Acute respiratory failure with hypoxia; I50.33 Acute on chronic diastolic (congestive) heart failure; E87.0 Hyperosmolality and hypernatremia; N17.9 Acute kidney failure, unspecified; I50.32 Chronic diastolic (congestive) heart failure; E46 Unspecified protein-calorie malnutrition; Z68.1 Body mass index [BMI] 19.9 or less, adult; Y95 Nosocomial condition; E86.0 Dehydration; I11.0 Hypertensive heart disease with heart failure; E86.1 Hypovolemia; E87.8 Other disorders of electrolyte and fluid balance, not elsewhere classified; E87.6 Hypokalemia; F01.50 Vascular dementia, unspecified severity, without behavioral disturbance, psychotic disturbance, mood disturbance, and anxiety; R13.10 Dysphagia, unspecified; Z66 Do not resuscitate; I51.3 Intracardiac thrombosis, not elsewhere classified; I34.0 Nonrheumatic mitral (valve) insufficiency; E83.39 Other disorders of phosphorus metabolism; L89.156 Pressure-induced deep tissue damage of sacral region
CPT/HCPCS: 36415; 71045; 74018; 80053; 80061; 80202; 82150; 82248; 82607; 82728; 82746; 82803; 82977; 83036; 83540; 83550; 83605; 83615; 83690; 83735; 83880; 84100; 84134; 84443; 84484; 84550; 85007; 85025; 85610; 85651; 85730; 86140; 87040; 87070; 87081; 87205; 87324; 93005; 93306; 94640; 96361; 96365; 96367; 99291; J7030; J7620; J8499; U0002